=== PATIENT | male | born 1945 | race Caucasian/White ===

== ENCOUNTER 2022-07-03 13:46 | Inpatient (IN) ==
[2022-07-03 14:58] LABS: Basophils # (auto) 0.09 K/uL (0-0.2); Basophils % (auto) 1.6 %; Eosinophils # (auto) 0.09 K/uL (0-0.50); Eosinophils % (auto) 1.6 %; Hematocrit (blood only) 43.5 % (40.1-51.0); Immature Granulocytes # (auto) 0.01 K/uL (0.00-0.02); Immature Granulocytes % (auto) 0.2 %; Lymphocytes # (auto) 1.38 K/uL (1.2-3.4); Lymphocytes % (auto) 24.8 %; Mean Corpuscular Hgb Conc 34.5 g/dL (32.0-36.0); Mean Platelet Volume 9.9 fL (9.4-12.4); Monocytes # (auto) 0.66 K/uL (0.24-0.82); Monocytes % (auto) 11.9 %; Neutrophils # (auto) 3.33 K/uL (1.4-6.5); Neutrophils % (auto) 59.9 %; Platelet Count 277 K/uL (130-400); RDW Coefficient of Variation 13.9 % (11.5-14.5); RDW Standard Deviation 44.1 fL (36.4-46.3); White Blood Count 5.56 K/ul (4.8-10.8)
[2022-07-03 15:29] LABS: Alanine Aminotransferase 17 U/L (7-52); Albumin Globulin Ratio 1.6 (0.9-2); Albumin Level 4.5 gm/dl (3.4-5.0); Alkaline Phosphatase 113 U/L (34-104); Anion Gap 10 (3-11); Aspartate Aminotransferase 15 U/L (13-39); BUN Creatinine Ratio 16.3 (10-20); Bilirubin,Total 1.5 mg/dl (0.2-1.0); Blood Urea Nitrogen 13 mg/dl (6-23); Calcium 9.8 mg/dl (8.5-10.1); Carbon Dioxide 25 mmol/L (21-32); Chloride 98 mmol/L (98-107); Est GFR (African American) 99.9 ml/min; Est GFR (Non-African American) 86.2 ml/min; Globulin 2.8 gm/dl (2.5-4.0); Glucose 137 mg/dl (70-99(Fasting)); Potassium 3.9 mmol/L (3.5-5.1); Sodium 133 mmol/L (136-145); Total Protein 7.3 gm/dl (6.0-8.3)
--- NOTE | 2022-07-03 15:48 | Emergency Department Note ---
Impression & Plan Neurogenic claudication due to lumbar spinal stenosis, Compression fracture ED Provider Note NAME: LESLY TAPIA AGE: 77 SEX: M : 1945 ARRIVES VIA: Walk-In INFORMANT: Patient, ED PROVIDER(S): Sergio Smart MD Chief Complaint: Difficulty with ambulation HPI: Patient presents due to concern for difficulty with ambulation and associated back pain. Patient reports that he had a prior history of spinal stenosis and had tried some back injections but without significant improvement in symptoms. The patient states that he had a fall while getting out of the bathtub and slipped falling and striking his lower back. He states that since then he has had worsening associated pain which she has tried ibuprofen and Tylenol as well as topicals but without significant improvement in symptoms. The patient is reportedly had a recurrence of bilateral lower extremity weakness to where he subsequently cannot walk. The patient was seen at [facility] and referred here for further evaluation and treatment and possible MRI. Patient denies any bowel or bladder incontinence or retention. Patient denies any current numbness or tingling he does state it is worse when he stands up straight. Patient denies any alcohol or tobacco use no chest pain or shortness of breath cough or fever. ROS: See HPI for pertinent positives and negatives. A total of 10 systems were reviewed and otherwise negative. Past medical history: See below Surgical history: See below Social history: See below Physical Exam: GENERAL: NAD, wearing a mask, non-toxic. EYE EXAM: Normal conjunctiva. PERRL, no anisocoria and EOM's grossly intact w/o pain. NECK: Supple, no nuchal rigidity, no adenopathy, non-tender. No signs of meningismus. FROM of the neck with good chin to chest and neck extension. No stridor. LUNGS: Clear to auscultation. Normal chest wall mechanics. HEART: NSR, no MRG. ABDOMEN: Abdomen soft, non-tender, normo-active bowel sounds, no masses, no rebound or guarding. BACK: No CVA TTP. No reproducible midline or flank pain SKIN: No rashes and no bruising. UPPER EXTREMITIES: Upper extremities are grossly normal. LOWER EXTREMITIES: Grossly normal, no edema. Positive straight leg raise bilat erally. 5 out of 5 strength. No saddle anesthesia. NEURO EXAM: A&O x3, cranial nerves II-XII grossly intact, normal speech, moves all 4 extremities. No sensory deficits. 5-5 strength bilateral lower extremities. Patellar reflexes grossly normal. Differential diagnoses: Infection, dehydration, metabolic abnormality, hypo/hyperglycemia, electrolyte disturbance, anemia, hypoxia, cardiac sources, intracerebral event, toxicologic, neurologic, as well as other pathologies. Course: Patient was seen and evaluated the bedside. Full history physical exam was performed. Imaging Studies: See Below Cardiac monitoring: An order was placed for continuous cardiac monitoring. The monitor shows a rate of 77 with sinus rhythm. MDM: Patient was seen due to concern for bilateral lower extremity weakness that has been intermittent but associated back pain. Blood work was obtained and is grossly unremarkable with a normal white count H&H and platelet count. The patient's kidney function is unremarkable. Mild hyponatremia 133 and hyperbilirubinemia 1.5. The patient has no right upper quadrant pain. Patient was ordered IV pain medications and IV steroids. MRI of the lumbar spine was ordered. Patient's MRI of the lumbar spine did show fractures as well as central canal stenosis. I did speak with the on-call business analysis specialist EMILY Ellis PA-C and he is agreeable and on board for the patient to be admitted to the medicine service with possible surgery on . I did convey this to the patient and family member and they are in agreement with plan of care. I did speak the on- call hospitalist Dr. Fortune and the patient was admitted to the medicine service. Past Med/Surg History Medical History H/O: HTN (hypertension) HLD (hyperlipidemia) Surgical History H/O aortic aneurysm repair Social History Smoking Status: Former smoker Tobacco Type: Cigarettes Smoking End Date: 10 YRS AGO; Hx Alcohol Use: Yes Alcohol type: hard liquor Hx Substance Use: No Preferred Language: Congolese Communication Ability: Effective Scrap Bunch Maker Required: No Beliefs That Will Affect Care: Yarsanism Yarsanism Beliefs: ORTHODOXY Current Living Situation: Spouse Feels Safe at Home: Yes Safety Concerns: Feels Safe At This Time Assistive Devices: Walker Allergies Allergies Allergy/AdvReac Type Severity Reaction Status Date / Time No Known Allergies Allergy Verified 10/17/22 18:10 Home Meds Home Medications Medication Instructions Recorded Confirmed amlodipine 5 mg tablet 5 mg PO DAILY 07/03/22 07/03/22 aspirin 81 mg capsule,delayed 81 mg PO DAILY 07/03/22 07/03/22 release atorvastatin 80 mg tablet 80 mg PO HS 07/03/22 07/03/22 carvedilol 6.25 mg tablet 6.25 mg PO BID 07/03/22 07/03/22 furosemide 40 mg tablet 40 mg PO DAILY 07/03/22 07/03/22 losartan 100 1 tab PO DAILY 07/03/22 07/03/22 mg-hydrochlorothiazide 12.5 mg tablet magnesium oxide 400 mg PO DAILY 07/03/22 07/03/22 omeprazole 40 mg capsule,delayed 40 mg PO DAILY 07/03/22 07/03/22 release potassium chloride 10 mEq 20 meq PO DAILY 07/03/22 07/03/22 tablet,extended release sildenafil 50 mg tablet 50 mg PO DAILY PRN Sexual Activity 07/03/22 07/03/22 umeclidinium 62.5 mcg-vilanterol 1 inh inhalation DAILY 07/03/22 07/03/22 25 mcg/actuation powdr for inhalation (Anoro Ellipta) Results & Data (ED) Vital Signs Vital Signs - 24 hr 07/03/22 18:22 07/03/22 19:00 07/03/22 19:30 Pulse Rate 70 72 Pulse Rate from SpO2 Sensor 77 70 72 Respiratory Rate 18 13 17 Blood Pressure 150/79 H 143/88 H 153/79 H Blood Pressure Mean 102 106 103 Pulse Oximetry 92 89 L 92 Oxygen Delivery Method Room Air Room Air Room Air 07/03/22 20:00 07/03/22 20:30 07/03/22 21:00 Pulse Rate 77 79 85 Pulse Rate from SpO2 Sensor 78 79 Respiratory Rate 14 17 18 Blood Pressure 146/93 H 156/89 H 172/90 H Blood Pressure Mean 110 111 117 Pulse Oximetry 91 90 Oxygen Delivery Method Room Air Room Air 07/03/22 22:00 07/03/22 22:30 Pulse Rate 86 95 H Pulse Rate from SpO2 Sensor 85 95 H Respiratory Rate 19 14 Blood Pressure 122/69 144/83 H Blood Pressure Mean 86 103 Pulse Oximetry 90 92 Oxygen Delivery Method Room Air Room Air Home Medications Current Medication List: was personally reviewed by me Laboratory Data Attestation: I reviewed the patient's lab results. Result diagrams: 07/04/22 05:31 07/04/22 05:31 Lab Results 07/03/22 07/03/22 07/03/22 Range/Units 14:47 14:47 20:05 WBC 5.56 (4.8-10.8) K/ul RBC 5.00 (4.63-6.08) M/uL Hgb 15.0 (14.0-18.0) g/dl Hct 43.5 (40.1-51.0) % MCV 87.0 (80.0-100.0) fL MCH 30.0 (25.0-34.0) pg MCHC 34.5 (32.0-36.0) g/dL RDW Std Deviation 44.1 (36.4-46.3) fL RDW Coeff of Gabe 13.9 (11.5-14.5) % Plt Count 277 (130-400) K/uL MPV 9.9 (9.4-12.4) fL Immature Gran % (Auto) 0.2 % Neut % (Auto) 59.9 % Lymph % (Auto) 24.8 % [place] % (Auto) 11.9 % Eos % (Auto) 1.6 % Baso % (Auto) 1.6 % Neut # (Auto) 3.33 (1.4-6.5) K/uL Lymph # (Auto) 1.38 (1.2-3.4) K/uL [place]ks # (Auto) 0.66 (0.24-0.82) K/uL Eos # (Auto) 0.09 (0-0.50) K/uL Baso # (Auto) 0.09 (0-0.2) K/uL Immature Gran # (Auto) 0.01 (0.00-0.02) K/uL Sodium 133 L (136-145) mmol/L Potassium 3.9 (3.5-5.1) mmol/L Chloride 98 (98-107) mmol/L Carbon Dioxide 25 (21-32) mmol/L Anion Gap 10 (3-11) BUN 13 (6-23) mg/dl Creatinine 0.80 (0.6-1.4) mg/dl Est Cr Clr Drug Dosing Not Reportable Est GFR ( Amer) 99.9 ml/min Est GFR (Non-Af Amer) 86.2 ml/min BUN/Creatinine Ratio 16.3 (10-20) Glucose 137 H (70-99(Fasting)) mg/dl Calcium 9.8 (8.5-10.1) mg/dl Total Bilirubin 1.5 H (0.2-1.0) mg/dl AST 15 (13-39) U/L ALT 17 (7-52) U/L Alkaline Phosphatase 113 H (34-104) U/L Total Protein 7.3 (6.0-8.3) gm/dl Albumin 4.5 (3.4-5.0) gm/dl Globulin 2.8 (2.5-4.0) gm/dl Albumin/Globulin Ratio 1.6 (0.9-2) SARS-CoV-2, RNA, NAAT NEGATIVE (NEGATIVE) Administered Medications Amlodipine Besylate (Amlodipine Besylate 5 Mg Tab) 5 mg PO DAILY PAMELA Stop: 08/03/22 08:59 Last Admin: 07/04/22 09:12 Dose: 5 mg Documented By: AMS Carvedilol (Carvedilol 6.25 Mg Tab) 6.25 mg PO BID PAMELA Stop: 08/03/22 08:59 Last Admin: 07/04/22 09:12 Dose: 6.25 mg Documented By: EVA Furosemide (Furosemide 40 Mg Tab) 40 mg PO DAILY PAMELA Stop: 08/03/22 08:59 Last Admin: 07/04/22 09:11 Dose: 40 mg Documented By: AMS HCTZ/Losartan Potassium (Losartan/Hctz 50/12.5mg Tab) 1 tab PO DAILY PAMELA Stop: 08/03/22 08:59 Last Admin: 07/04/22 09:11 Dose: 1 tab Documented By: AMS Losartan Potassium (Losartan Potassium 50 Mg Tab) 50 mg PO DAILY PAMELA Stop: 08/03/22 08:59 Last Admin: 07/04/22 09:12 Dose: 50 mg Documented By: AMS Magnesium Oxide (Magnesium Oxide 400 Mg Tab) 400 mg PO DAILY PAMELA Stop: 08/03/22 08:59 Last Admin: 07/04/22 09:12 Dose: 400 mg Documented By: AMS Morphine Sulfate (Morphine Sulfate 4 Mg/Ml 1 Ml Carp\Vial) 3 mg IV Q4H PRN PRN Reason: Pain Stop: 07/18/22 00:11 Last Admin: 07/04/22 05:10 Dose: 3 mg Documented By: Admin: 07/04/22 00:57 Dose: 3 mg Documented By: CEE Pantoprazole Sodium (Pantoprazole 40 Mg Tab) 40 mg PO DAILY PAMELA Stop: 08/03/22 08:59 Last Admin: 07/04/22 09:12 Dose: 40 mg Documented By: EVA Potassium Chloride (Potassium Chloride Crtab 20 Meq Tabcr) 20 meq PO DAILY PAMELA Stop: 08/03/22 08:59 Last Admin: 07/04/22 09:12 Dose: 20 meq Documented By: EVA Umeclidinium/Vilanterol (Umeclidinium/Vilanterol 62.5/25mcg 7 Puffs/Inhaler) 1 puffs INH DAILY PAMELA Stop: 08/03/22 08:59 Last Admin: 07/04/22 09:11 Dose: 1 puffs Documented By: EVA Discontinued Medications Acetaminophen (Acetaminophen 500 Mg Tab) 1,000 mg PO NOW STA Stop: 07/03/22 16:24 Last Admin: 07/03/22 16:31 Dose: 1,000 mg Documented By: PATI Dextrose/Sodium Chloride (D5w And 1/2nss) 1,000 mls @ 80 mls/hr IV .[id number] PAMELA Stop: 08/03/22 00:11 Last Admin: 07/04/22 13:54 Dose: Not Given Documented By: Infusion: 07/04/22 13:54 Dose: 0 mls/hr Documented By: Infusion: 07/04/22 11:46 Dose: 0 mls/hr Documented By: Admin: 07/04/22 00:57 Dose: 80 mls/hr Documented By: CEE Methylprednisolone (Methylprednisolone 125 Mg/2 Ml Vial) 125 mg IV NOW STA Stop: 07/03/22 16:24 Last Admin: 07/03/22 16:32 Dose: 125 mg Documented By: PATI Morphine Sulfate (Morphine Sulfate 4 Mg/Ml 1 Ml Carp\Vial) 4 mg IV NOW STA Stop: 07/03/22 16:24 Last Admin: 07/03/22 16:33 Dose: 4 mg Documented By: PATI Imaging Data Radiologist's Impression: Lumbar Spine MRI 10/17/22 16:23 MRI OF THE LUMBAR SPINE WITHOUT IV CONTRAST CLINICAL HISTORY: Low back pain. Leg weakness. COMPARISON STUDY: No priors. TECHNIQUE: MRI of the lumbar spine is performed utilizing various T1 and T2- weighted sequences in the axial and sagittal planes. IV contrast was not administered for this examination. The examination is significantly compromised by motion artifact. FINDINGS: Lumbar spine: There is an acute to subacute superior endplate compression fracture of L4 with mild loss of height and associated marrow edema. There is also an inferior endplate fracture of L3. There is no loss of height of the L3 vertebral body. There is also a mild subacute appearing superior endplate compression fracture of L1. There is only mild loss of height and mild marrow edema. No retropulsed fragments are identified. Vertebral body height is otherwise maintained throughout the lumbar spine. There is minimal retrolisthesis at L2-L3 and L3-L4. There is straightening of the lumbar lordosis. Large anterior and lateral marginal osteophytes are seen throughout. The transverse and spinous processes are grossly intact. There is no evidence of spondylolysis. Intervertebral discs: Degenerative disc desiccation and loss of height is seen throughout the lumbar spine. Loss of height is severe at L2-L3 and moderate to severe at L1-L2, L3-L4, and L4-L5. Spinal cord: Visualized spinal cord is normal in morphology and signal intensity. The conus medullaris terminates at the level of L1. The nerve roots of the cauda equina are normal in morphology. T12-L1: Unremarkable. L1-L2: There is broad-based posterior disc bulge and annular fissure. This impinges on the transiting nerve roots, right greater than left. There is only mild acquired compromise of the central canal at this level with a minimum AP diameter of 7 mm. There is bilateral subarticular stenosis. There is mild bilateral neural foraminal narrowing. L2-L3: There is broad-based posterior disc bulge. This impinges on the transiting nerve roots. In conjunction with hypertrophy of the ligamentum flavum, there is moderate to severe central canal stenosis with minimum AP diameter of 5 mm. Lateral disc bulge contributes to severe bilateral subarticular stenosis. In conjunction with facet arthropathy, there is moderate to severe bilateral neural foraminal narrowing. L3-L4: There is broad-based posterior disc bulge. This impinges on the transiting nerve roots. In conjunction with hypertrophy of the ligamentum flavum, there is severe central canal stenosis at this level with a minimum AP diameter of 3 mm. There are large lateral disc bulges seen bilaterally. These impinge on the exiting bilateral L3 nerve roots. In conjunction with facet arthropathy, there is moderate to severe bilateral neural foraminal stenosis at this level. L4-L5: There is broad-based posterior disc bulge and annular fissure. This impinges on the transiting nerve roots. In conjunction with hypertrophy of ligamentum flavum, there is severe central canal stenosis at this level with a minimum AP diameter of 3 mm. A small superiorly extruded and possibly sequestered disc fragment is seen on axial image #26. The fragment is eccentric to the left and measures 10 mm. Lateral disc bulge contributes to bilateral subarticular stenosis. There is impingement of the exiting left L4 nerve root. In conjunction with facet arthropathy, there is severe bilateral neural foraminal stenosis. L5-S1: There is minimal posterior disc bulge. The central canal is clear. Lateral disc bulge contributes to mild bilateral subarticular stenosis. Facet arthropathy contributes to mild bilateral neural foraminal narrowing. Sacrum: The visualized sacrum is normal in morphology and signal intensity. Soft tissues: There is mild fatty atrophy of the paraspinous musculature. A 2.3 cm cyst is noted in the partially imaged right kidney. The bladder wall appears thickened and trabeculated indicating chronic outlet obstruction. IMPRESSION: 1. There are acute to subacute appearing fractures of L1, L3, and L4 as detailed above with corresponding marrow edema. No retropulsed fragments are identified. 2. Advanced lumbosacral spondylosis as above with multilevel acquired compromise of the central canal. See discussion for detailed level by level analysis. 3. There is a superiorly extruded and possibly sequestered disc fragment e ccentric to the left at L4-L5. 4. No destructive bony lesion is clearly seen. Dictated: 07/03/2022 6:02 PM Transcribed: 07/03/2022 6:42 PM Nikky [id number] [email or web address] Electronically signed by: Fili Escalera M.D. 07/03/2022 7:28 PM Discharge Plan Visit Data Chief Complaint: Leg Injury/Pain Stated Complaint: LOST FUNCTION IN BOTH LEGS, REF BY DR WALTON ED Provider: Sergio Smart Discharge Problem: Neurogenic claudication due to lumbar spinal stenosis, Compression fracture Patient Disposition: Admitted As Inpatient Discharge Instructions Interventions: ED Discharge Assessment Last Done: 07/03/22 23:31
[2022-07-03] MEDS ORDERED: MoRPHine SULFATE 4 MG/ML 1 ML CARP\\VIAL IV STA (16:23)
[2022-07-03] MEDS ORDERED: methylPREDNISolone 125 MG/2 ML VIAL IV STA (16:23)
[2022-07-03] MEDS ORDERED: ACETAMINOPHEN 500 MG TAB PO STA (16:23)
--- NOTE | 2022-07-03 19:30 | Magnetic Resonance Report ---
MRI OF THE LUMBAR SPINE WITHOUT IV CONTRAST CLINICAL HISTORY: Low back pain. Leg weakness. COMPARISON STUDY: No priors. TECHNIQUE: MRI of the lumbar spine is performed utilizing various T1 and T2-weighted sequences in the axial and sagittal planes. IV contrast was not administered for this examination. The examination is significantly compromised by motion artifact. FINDINGS: Lumbar spine: There is an acute to subacute superior endplate compression fracture of L4 with mild lo ss of height and associated marrow edema. There is also an inferior endplate fracture of L3. There is no loss of height of the L3 vertebral body. There is also a mild subacute appearing superior endplat e compression fracture of L1. There is only mild loss of height and mild marrow edema. No retropulsed fragments are identified. Vertebral body height is otherwise maintained throughout the lumbar spine. There is minimal retrolisthesis at L2-L3 and L3-L4. There is straightening of the lumbar lordosis. L arge anterior and lateral marginal osteophytes are seen throughout. The transverse and spinous proces ses are grossly intact. There is no evidence of spondylolysis. Intervertebral discs: Degenerative disc desiccation and loss of height is seen throughout the lumbar spine. Loss of height is severe at L2-L3 and moderate to severe at L1-L2, L3-L4, and L4-L5. Spinal cord: Visualized spinal cord is normal in morphology and signal intensity. The conus medullari s terminates at the level of L1. The nerve roots of the cauda equina are normal in morphology. T12-L1: Unremarkable. L1-L2: There is broad-based posterior disc bulge and annular fissure. This impinges on the transiting nerve roots, right greater than left. There is only mild acquired compromise of the central canal at this level with a minimum AP diameter of 7 mm. There is bilateral subarticular stenosis. There is mi ld bilateral neural foraminal narrowing. L2-L3: There is broad-based posterior disc bulge. This impinges on the transiting nerve roots. In con junction with hypertrophy of the ligamentum flavum, there is moderate to severe central canal stenosi s with minimum AP diameter of 5 mm. Lateral disc bulge contributes to severe bilateral subarticular s tenosis. In conjunction with facet arthropathy, there is moderate to severe bilateral neural foramina l narrowing. L3-L4: There is broad-based posterior disc bulge. This impinges on the transiting nerve roots. In con junction with hypertrophy of the ligamentum flavum, there is severe central canal stenosis at this le javier with a minimum AP diameter of 3 mm. There are large lateral disc bulges seen bilaterally. These i mpinge on the exiting bilateral L3 nerve roots. In conjunction with facet arthropathy, there is moder ate to severe bilateral neural foraminal stenosis at this level. L4-L5: There is broad-based posterior disc bulge and annular fissure. This impinges on the transiting nerve roots. In conjunction with hypertrophy of ligamentum flavum, there is severe central canal zeinab nosis at this level with a minimum AP diameter of 3 mm. A small superiorly extruded and possibly sequ estered disc fragment is seen on axial image #26. The fragment is eccentric to the left and measures 10 mm. Lateral disc bulge contributes to bilateral subarticular stenosis. There is impingement of the exiting left L4 nerve root. In conjunction with facet arthropathy, there is severe bilateral neural foraminal stenosis. L5-S1: There is minimal posterior disc bulge. The central canal is clear. Lateral disc bulge contribu tk to mild bilateral subarticular stenosis. Facet arthropathy contributes to mild bilateral neural f oraminal narrowing. Sacrum: The visualized sacrum is normal in morphology and signal intensity. Soft tissues: There is mild fatty atrophy of the paraspinous musculature. A 2.3 cm cyst is noted in t he partially imaged right kidney. The bladder wall appears thickened and trabeculated indicating welfare manager hailey outlet obstruction. IMPRESSION: 1. There are acute to subacute appearing fractures of L1, L3, and L4 as detailed above with correspon ding marrow edema. No retropulsed fragments are identified. 2. Advanced lumbosacral spondylosis as above with multilevel acquired compromise of the central canal . See discussion for detailed level by level analysis. 3. There is a superiorly extruded and possibly sequestered disc fragment eccentric to the left at L4- L5. 4. No destructive bony lesion is clearly seen. Dictated: 07/03/2022 6:02 PM Transcribed: 07/03/2022 6:42 PM Nik[facility] [id number] [email or web address] Electronically signed by: Fili Escalera M.D. 07/03/2022 7:28 PM
--- NOTE | 2022-07-03 23:33 | History and Physical Report ---
DATE OF ADMISSION: 07/03/2022. CHIEF COMPLAINT: Lumbar spine fracture and ambulatory dysfunction. HISTORY OF PRESENT ILLNESS: This is a 77-year-old male with past medical history significant for thoracic [place] [facility] [place] demonstrating diffuse minor irregularities without obstructive disease. In 2018, he was admitted to [facility] with chest pain, new left bundle-branch block. An updated 2D echo demonstrated mildly reduced LV function with EF of 45%-50% with inferior wall abnormality. 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 Medical management recommended. Ascending aorta by echo criteria was measured to be at 4.4 cm at that time. Follows with vascular surgery at [facility]. History of past tobacco abuse with underlying COPD, hyperlipidemia, hypertension, GERD, BPH, has chronic back pain. The patient says for the last 2 years, he on and off uses cane for back pain , but 1 month ago, he fell on the bathtub on his back and since then he is progressively getting difficulty ambulating, using a walker, that is the reason he was advised to come to the ER. A lumbar spine MRI shows acute to subacute appearing fractures of L1, L3 and L4, corresponding marrow edema, disk fragment to the left of L4-L5. The patient has ambulatory dysfunction and also has numbness in the lateral aspect of the lower leg and feet. No incontinence. He can feel his legs. Currently, resting comfortably, hemodynamically stable. He says not much of back pain, it is more of his numbness and ambulatory dysfunction. Denies any chest pain, no shortness of breath. Occasional cough. No fever, no chills. Appetite is okay. No difficulty swallowing. No headache. He has some chronic neck pain. No blurred visions, no earache, no runny nose, no sore throat, no nausea, no abdominal pain. Normal bowel movements. Since his fall and having this back pain, he is micturating frequently, but denies any incontinence. ALLERGIES: No known drug allergies. PAST MEDICAL HISTORY: As mentioned above. 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 MEDICATIONS: The patient is on amlodipine 5 mg p.o. daily, atorvastatin 80 mg p.o. at bedtime, Coreg 6.25 mg p.o. b.i.d., Lasix 40 mg p.o. daily, losartan/hydrochlorothiazide 100/12.5 mg p.o. daily, magnesium oxide 400 mg p.o. daily, omeprazole 40 mg p.o. daily, potassium chloride 20 mEq p.o. daily, Anoro Ellipta 1 inhalation daily. FAMILY HISTORY: Significant for sister had bone cancer, father had COPD, mother of natural causes. SOCIAL HISTORY: . Quit smoking in 2009, smoked 1.5 packs a day for 45 years. Alcohol, 2 drinks daily, but not every day. No drug use. REVIEW OF SYSTEMS: As per HPI. Rest of the review of systems is negative. PHYSICAL EXAMINATION: GENERAL: The patient is of moderate build, not in acute distress. VITAL SIGNS: Temperature 36.3, pulse 86, respiratory rate 19, blood pressure 122/69, oxygen 90% on room air. HEENT: Pupils equal, round and reactive to light. Oral mucosa moist. NECK: No JVD, no neck masses. CARDIOVASCULAR: S1 and S2 heard. Regular rate and rhythm. No murmur, no gallop. RESPIRATORY SYSTEM: Normal AP diameter. No accessory muscle use. No wheezing, no crackles. ABDOMEN: Soft, bowel sounds present, nontender, no distention. CENTRAL NERVOUS SYSTEM: Alert and oriented. No facial droop. Speech is clear. Insight is good. Obeys simple commands, moving his extremities. EXTREMITIES: No edema, no erythema. Sensations are intact in lower extremities, can move his lower extremities. LABORATORY DATA: WBC 5.5, hemoglobin 15, hematocrit 43.5, platelets 277. Sodium 133, potassium 3.9, chloride 98, bicarbonate 25, BUN 13, creatinine 0.8, serum glucose 137, calcium 9.8, total bilirubin 1.5, AST 15, ALT 17, alkaline phosphatase 113. SARS-CoV-2 rapid test negative. IMAGING: Lumbar spine MRI: [id number] appearing fractures of L1, L3, L4. Corresponding marrow edema. Advanced lumbosacral spondylosis, multilevel cord compromise of the central canal, superiorly excluded, and possibly sequestrated disk fragment eccentric to the left at L4-L5. ASSESSMENT AND PLAN: This 77-year-old male presents with fall and lumbar spine fracture. 1. Fall, mechanical fall and lumbar spine fracture at L1, L3 and L4. We will keep him n.p.o., IV fluids. Orthopedics consult in a.m. Pain control. If the EKG and chest x-ray are okay, the patient will be an acceptable risk to proceed with the procedure. The patient is not in acute congestive heart failure or acute chronic obstructive pulmonary disease exacerbation. Laboratories are okay. 2. History of chronic obstructive pulmonary disease. Continue his home inhalers, currently stable. 3. History of congestive heart failure. The patient has ejection fraction of 40%-45% in 2018, but recovered to 50%-55% on echocardiogram in 08/2021. On Lasix, Coreg, and losartan/hydrochlorothiazide, which will be continued. Currently getting gentle fluids as the patient is n.p.o., monitor for any volume overload. 4. History of coronary artery disease, on statin and beta alisha. 5. Gastroesophageal reflux disease, on omeprazole. 6. Hypertension, high blood pressure. The patient is on amlodipine, Coreg, losartan/hydrochlorothiazide, diuretics. We will monitor his blood pressure. 7. Hyperlipidemia, on statin. 8. History of ascending aortic aneurysm, status post repair. 9. History of benign prostatic hyperplasia, we will monitor for any urinary retention. 10. Deep venous thrombosis prophylaxis. Place him on sequential compression devices for now in plan of any procedure. If no procedure is planned soon, we can place on anticoagulation. DISPOSITION: Closely monitor in the medical floor. PT, OT prior to discharge. Social service to help with discharge planning. Level 1, full code. Job ID: [id number] MTDD
[2022-07-04] MEDS ORDERED: ACETAMINOPHEN 325 MG TAB PO PRN (00:12)
[2022-07-04] MEDS ORDERED: POLYETHYLENE (MIRALAX) 17 GM PACK PO PRN (00:12)
[2022-07-04] MEDS: D5W AND 1/2NSS 1,000 ML IV SCH ×2 (00:57→13:54)
[2022-07-04] MEDS: MoRPHine SULFATE 4 MG/ML 1 ML CARP\\VIAL IV PRN ×4 (00:57→23:13)
[2022-07-04 02:25] LABS: Appearance Urine Clear (Clear); Bilirubin Urine Negative (Negative); Blood Urine Negative (Negative); Color Urine Yellow; Glucose Urine UA 3+ (Negative); Ketones Urine Negative (Negative); Leukocyte Esterase Urine Negative (Negative); Nitrite Urine Negative (Negative); Protein Urine Negative (Negative); Specific Gravity Urine 1.017 (1.000-1.030); Urobilinogen Urine Negative (Negative); pH Urine 5.5 (4.5-7.5)
[2022-07-04 06:06] LABS: Hematocrit (blood only) 41.3 % (40.1-51.0); Hemoglobin 13.9 g/dl (14.0-18.0); Mean Corpuscular Hemoglobin 29.5 pg (25.0-34.0); Mean Corpuscular Hgb Conc 33.7 g/dL (32.0-36.0); Mean Corpuscular Volume 87.7 fL (80.0-100.0); Mean Platelet Volume 10.2 fL (9.4-12.4); Platelet Count 246 K/uL (130-400); RDW Coefficient of Variation 13.7 % (11.5-14.5); RDW Standard Deviation 43.8 fL (36.4-46.3); Red Blood Count 4.71 M/uL (4.63-6.08); White Blood Count 5.64 K/ul (4.8-10.8)
[2022-07-04 06:26] LABS: BUN Creatinine Ratio 25.4 (10-20); Calcium 9.2 mg/dl (8.5-10.1); Creatinine Clr Calc Pharmacy 115.3 ml/min; Est GFR (African American) 107.4 ml/min; Est GFR (Non-African American) 92.7 ml/min; Magnesium 1.9 mg/dl (1.7-2.4); Potassium 3.9 mmol/L (3.5-5.1)
[2022-07-04 06:36] LABS: Basophils # (auto) 0.01 K/uL (0-0.2); Basophils % (auto) 0.2 %; Immature Granulocytes # (auto) 0.03 K/uL (0.00-0.02); Immature Granulocytes % (auto) 0.5 %; Lymphocytes # (auto) 0.43 K/uL (1.2-3.4); Lymphocytes % (auto) 7.6 %; Monocytes # (auto) 0.07 K/uL (0.24-0.82); Monocytes % (auto) 1.2 %; Neutrophils % (auto) 90.5 %
--- NOTE | 2022-07-04 08:34 | XRay Report ---
XR chest 1V portable CLINICAL HISTORY: pre op TECHNIQUE: Single frontal radiograph of the chest was obtained. Comparison: None available at the time of this dictation. FINDINGS: Median sternotomy wires are unchanged. The cardiomediastinal silhouette is normal. The lungs are ashutosh r. No evidence of pleural effusion or pneumothorax. IMPRESSION: No acute chest disease. ACT 112: Negative or not required by law. Electronically signed by: Christiano Alonzo M.D. 07/04/2022 8:33 AM
[2022-07-04] MEDS: FUROSEMIDE 40 MG TAB PO SCH (09:11)
[2022-07-04] MEDS: UMECLIDINIUM/VILANTEROL 62.5/25MCG 7 PUFFS/INHALER INH SCH (09:11)
[2022-07-04] MEDS: LOSARTAN/HCTZ 50/12.5MG TAB PO SCH (09:11)
[2022-07-04] MEDS: MAGNESIUM OXIDE 400 MG TAB PO SCH (09:12)
[2022-07-04] MEDS: PANTOprazole 40 MG TAB PO SCH (09:12)
[2022-07-04] MEDS: POTASSIUM CHLORIDE CRTAB 20 MEQ TABCR PO SCH (09:12)
[2022-07-04] MEDS: amLODIPine BESYLATE 5 MG TAB PO SCH (09:12)
[2022-07-04] MEDS: LOSARTAN POTASSIUM 50 MG TAB PO SCH (09:12)
[2022-07-04] MEDS: carvediloL 6.25 MG TAB PO SCH ×2 (09:12→21:29)
--- NOTE | 2022-07-04 11:17 | Discharge Summary ---
Date of Service July 04, 2022 Principal Diagnosis Lumbar spinal stenosis with neurogenic claudication Discharge Data Allergies Allergy/AdvReac Type Severity Reaction Status Date / Time No Known Allergies Allergy Verified 07/03/22 18:10 Consultations 07/03/22 19:49 ED Decision to Admit Stat 07/04/22 08:00 Consult Orthopedic Surgery Routine Procedures Performed Operation Date: 07/05/22 13:00 <No data on this case meets the specified criteria> Ordered Studies 07/03/22 16:23 MR lumbar spine wo con Stat Hospital Course (1) Neurogenic claudication due to lumbar spinal stenosis: Patient was admitted with severe bilateral leg weakness and spinal stenosis underwent lumbar decompression fusion Targis well stable orthopedic for postoperative. He did progress status postoperative stay DAVID drain decreased appropriately. Subsequently discharged home. Discharge orders instructions from the chart for further review. Total Time Total Time Spent Total Time Spent (In Minutes): 20 minutes Discharge Plan Discharge Items Patient Disposition: Home - Self-Care Reason For Visit: LEG INJURY Discharge Diagnosis: Lumbar spinal stenosis with neurogenic claudication Activity: As commented below Non-emergency contact: Primary Care Provider Call non-emergency contact if: you have any medication questions Follow-up/Referrals: Aide Moss MD [Primary Care Provider] - Diet: Regular Addtl Attending Provider Instructions: ACTIVITY RECOMMENDATIONS: SELF CARE INSTRUCTIONS AFTER THORACIC/LUMBAR FUSIONS 1. You may walk to your tolerance. It is good exercise for your legs and back. Expect some back and intermittent leg aches and pains. 2. You may perform "counter-top" level activities (make a sandwich, monroe with a project, etc.). 3. No bending or lifting of more than 10 pounds or back twisting of any nature (roll like a log when turning in bed). 4. You may ride in a car for 20-30 minutes at a time. No driving until after your first visit with your doctor. 5. Frequent changes of position and restricting sitting to 30 minutes at a time will help limit the amount of back spasms and stiffness you may experience. 6. You may discontinue the use of ambulatory aids (cane, crutches, etc.) once your strength and confidence allow. 7. You may assistant county engineer the shower and let water strike your incision when you arrive home at least once daily. Do not take a tub bath, sit in a hot tub or go into a swimming pool until after your first recheck in the office. SPECIAL CARE INSTRUCTIONS: VERY IMPORTANT TO READ AND REVIEW A. Your surgical incision has been closed with a cosmetic suture under the skin that will dissolve in about 6 weeks. In 14 days, you can use a pair of clean scissors and cut the suture that is left outside of the skin at th e ends of your incision. 1. The small skin tapes can be removed 7 days after surgery if they have not fallen off by that point. 2. You may keep the wound open to air as much as possible to promote healing after post-op day number 5 unless told otherwise by your doctor. 3. If you think the wound looks like it is becoming infected (redness or worsening drainage) and/or you are experiencing fever, chill or worsening back pain and muscle spasms, contact the office so that we may evaluate you as soon as possible. B. Complications are uncommon, but please contact us if you have any signs or symptoms of: 1. wound infection (fever higher than 102.5 degrees F, redness, separation of wound, drainage, or increasing pain from the incision) 2. blood clots in legs (pain, swelling, redness and warmth in legs) 3. urinary tract infection (fever higher than 102.5 degrees F, burning upon urination or increased frequency of urination) 4. nerve problems (inability to walk on your toes or heels, numbness, loss of bowel or bladder control) 5. any other symptoms that concern you C. Please call the office at if you have any concerns or questions about your operation or recovery. D. No smoking! Smoking drastically decreases the chance of a solid fusion. E. Do not take any anti-inflammatory medications (Indocin, Advil, Motrin, Aspirin, Naprosyn, etc.) as these may inhibit the chance of a solid fusion. Tylenol is okay to take for pain. MANAGING PAIN AFTER SPINAL SURGERY 1. Narcotic medication is intended for short-term use and will be provided for surgical pain. Surgical pain usually lasts for a period of 4-6 weeks. Narcotic medication includes Percocet, Vicodin, Darvocet, Tylenol #3 or Lortab. 2. Longer-term pain is more appropriately treated with non-narcotic medication such as Tylenol ES. 3. Muscle spasm is not appropriately treated with narcotics. Muscle relaxers such as Soma, Flexeril or Skelaxin can be used along with Tylenol ES. 4. Remember that we all live with some "aches and pains". This is not unusual or uncommon after an injury or as we get older. a. Back pain is expected and may include muscle spasms for 4 to 6 weeks after surgery. The pain should gradually improve. If the pain worsens for no apparent reason, please contact the office. b. Intermittent leg pain may also be experienced and should not be concerned about unless it worsens for no apparent reason. If so, please contact the office. 5. We will provide appropriate medication within the normal guidelines of their prescribed use. We will also be very cautious and aware of potential abuse and extended duration of patients' medication needs. a. Pain medications are for your comfort and to assist with sleep and rest so that the tissue can heal. They are not provided in order to return to normal activity and should not be used through the day. To do so or worsening pain at night can result from ongoing tissue damage and development of tolerance to the prescribed medicine. 6. Please allow 2-3 days to process refills. Prescriptions will not be mailed but must be picked up at the office. FOLLOW UP VISIT: Keep your scheduled follow-up appointment. Any questions, please call the office at . Pending Studies at Discharge: No Stand-Alone Forms: My [facility], Smoking Cessation Medications and DC Order Prescriptions: New oxycodone 5 mg tablet 5 mg PO Q6H PRN (Reason: pain, severe) Qty: 30 0RF tramadol 50 mg tablet 50 mg PO Q6H PRN (Reason: pain, moderate) Qty: 30 0RF tamsulosin 0.4 mg Capsule 0.4 mg PO HS Qty: 30 3RF Continued furosemide 40 mg tablet 40 mg PO DAILY atorvastatin 80 mg tablet 80 mg PO HS carvedilol 6.25 mg tablet 6.25 mg PO BID sildenafil 50 mg tablet 50 mg PO DAILY PRN (Reason: Sexual Activity) potassium chloride 10 mEq tablet extended release 20 meq PO DAILY amlodipine 5 mg tablet 5 mg PO DAILY omeprazole 40 mg capsule,delayed release(DR/EC) 40 mg PO DAILY losartan-hydrochlorothiazide 100-12.5 mg tablet 1 tab PO DAILY Anoro Ellipta 62.5-25 mcg/actuation blister with device 1 inh INHALATION DAILY magnesium oxide 400 mg magnesium Tablet 400 mg PO DAILY aspirin 81 mg Capsule,Delayed Release(Dr/Ec) 81 mg PO DAILY Discharge Orders: Discharge Order (Routine); Ordered 07/10/22 Ordered By: Wade Williamson Admission Data Admit Date/Time: 07/03/22 22:49 Attending Provider: Wade Williamson Admit Provider: Wade Williamson Primary Care Provider: Aide Moss Other Providers: Robert Camacho ; Marcel Fortune ; Wade Williamson ; Kandy Goddard
--- NOTE | 2022-07-04 11:19 | Orthopedic Consultation ---
Date of Consultation July 04, 2022 Assessment & Plan (1) Neurogenic claudication due to lumbar spinal stenosis: Assessment severe multilevel lumbar spinal stenosis with compression fractures. Plan at this time the patient's had a steady decline in status has severe neural compression due to spinal stenosis at multiple levels lumbar spine. He is developing significant lower extremity weakness and inability to ambulate. Subsequently recommending urgent lumbar decompression and fusion L2-L3 L3-L4 L4-L5 with possible kyphoplasty. Risk benefits pros cons and alternatives were outlined in detail. Risk include but not limited to anesthesia blindness stroke paralysis nerve damage blood loss requiring transfusion infection requiring reoperation benefits hopefully marked improvement of his neurogenic claudication and in time his strength. At this time we will make him n.p.o. after midnight plan for surgery tomorrow. History of Present Illness Reason for Consultation: Bilateral leg pain and weakness Attending Physician: Robert Camacho MD History of Present Illness This a very pleasant 77-year-old male that had a marked decline in status of the past several weeks with progressive weakness in his lower extremities and inability to ambulate. This has been progressive over time but exacerbated recently. He states he can only stand for a few minutes and has to lean forward to obtain any relief. He notes progressive weakness particularly affecting left lower extremity. Allergies Allergy/AdvReac Type Severity Reaction Status Date / Time No Known Allergies Allergy Verified 07/03/22 18:10 Home Medications Medication Instructions Recorded Confirmed Type amlodipine 5 mg tablet 5 mg PO DAILY 07/03/22 07/03/22 History aspirin 81 mg capsule,delayed 81 mg PO DAILY 07/03/22 07/03/22 History release atorvastatin 80 mg tablet 80 mg PO HS 07/03/22 07/03/22 History carvedilol 6.25 mg tablet 6.25 mg PO BID 07/03/22 07/03/22 History furosemide 40 mg tablet 40 mg PO DAILY 07/03/22 07/03/22 History losartan 100 1 tab PO DAILY 07/03/22 07/03/22 History mg-hydrochlorothiazide 12.5 mg tablet magnesium oxide 400 mg PO DAILY 07/03/22 07/03/22 History omeprazole 40 mg capsule,delayed 40 mg PO DAILY 07/03/22 07/03/22 History release potassium chloride 10 mEq 20 meq PO DAILY 07/03/22 07/03/22 History tablet,extended release sildenafil 50 mg tablet 50 mg PO DAILY PRN Sexual Activity 07/03/22 07/03/22 History umeclidinium 62.5 mcg-vilanterol 1 inh inhalation DAILY 07/03/22 07/03/22 History 25 mcg/actuation powdr for inhalation (Anoro Ellipta) Patient History Social History Smoking Status: Former smoker Tobacco Type: Cigarettes Smoking End Date: 10 YRS AGO; Hx Alcohol Use: Yes Alcohol type: hard liquor Hx Substance Use: No Preferred Language: Italian Communication Ability: Effective [place] Electronic Required: No Beliefs That Will Affect Care: Sikhism Sikhism Beliefs: ANGLICAN Current Living Situation: Spouse Feels Safe at Home: Yes Safety Concerns: Feels Safe At This Time Assistive Devices: Walker Physical Exam Physical Exam: On exam his bed at this time. He has plus out of 5 right dorsiflexion with a 4/5 on the left. Sensory is intact to cold and light touch bilaterally. Quadriceps are symmetric and intact bilaterally. Results & Data ([facility]) Vital Signs (Past 12 Hours) Vital Signs Temp Pulse Resp BP Pulse Ox O2 Del Method 07/04/22 08:24 36.7 C 84 18 164/78 H 92 Room Air 07/04/22 08:10 Room Air 07/03/22 23:45 36.5 C 92 H 18 164/90 H 93 Room Air
--- NOTE | 2022-07-04 14:35 | Electrocardiogram Report ---
Test Reason : Blood Pressure : / mmHG Vent. Rate : 085 BPM Atrial Rate : 085 BPM P-R Int : 216 ms QRS Dur : 140 ms QT Int : 404 ms P-R-T Axes : 026 -64 051 degrees QTc Int : 480 ms Poor data quality, interpretation may be adversely affected Sinus rhythm with 1st degree A-V block Left atrial enlargement Left anterior fascicular block Left ventricular hypertrophy with QRS widening Abnormal ECG No previous ECGs available Confirmed by Presley Riley ([id number]) on 07/04/2022 2:35:35 PM Referred By: Wade Williamson Confirmed By:Presley Riley
--- NOTE | 2022-07-04 16:17 | Hospitalist Progress Note ---
Date of Service July 04, 2022 Assessment & Plan (1) Neurogenic claudication due to lumbar spinal stenosis: (2) Compression fracture: Plan Patient is a 77-year-old male with past medical history of COPD, CHF, CAD, GERD, hypertension, hyperlipidemia, history of ascending aortic aneurysm status post repair, BPH presented after a fall about a month ago. He was found to have A [id number] appearing fractures of L1, L3, L4. Corresponding marrow edema on MRI lumbar spine. Patient is scheduled for Lumbar decompression and fusion L2-L3 L3-L4 L4-L5 with possible kyphoplasty on 07/05. Mechanical Fall Lumbar spine fracture at L1, L3 and L4 Presents after a fall in the bathroom about a month ago. MRI finding as above Afebrile, normotensive and saturating well in room air. Plan for Patient is scheduled for Lumbar decompression and fusion L2-L3 L3-L4 L4-L5 with possible kyphoplasty on 07/05. N.p.o. from midnight. Chronic conditions: History of chronic obstructive pulmonary disease. Continue his home inhalers, currently stable. History of congestive heart failure. The patient has ejection fraction of 40%- 45% in 2018, but recovered to 50%-55% on echocardiogram in 08/2021. On Lasix, Coreg, and losartan/hydrochlorothiazide, which will be continued. History of coronary artery disease, on statin and beta alisha. Gastroesophageal reflux disease, on omeprazole. Hypertension, high blood pressure. The patient is on amlodipine, Coreg, losartan/hydrochlorothiazide, diuretics. We will monitor his blood pressure. Hyperlipidemia, on statin. History of ascending aortic aneurysm, status post repair. History of benign prostatic hyperplasia, we will monitor for any urinary retention. Deep venous thrombosis prophylaxis. SCDs; start pharmacological prophylaxis after procedure Admission and Anticipated Discharge Date Admission Date: July 03, 2022 Subjective Patient seen and examined at bedside. He is comfortable; not in distress. Review of Systems Review of Systems: All systems reviewed & are unremarkable except as noted in Subjective Physical Exam Physical Exam: GENERAL: The patient is of moderate build, not in acute distress. HEENT: Pupils equal, round and reactive to light. Oral mucosa moist. NECK: No JVD, no neck masses. CARDIOVASCULAR: S1 and S2 heard. Regular rate and rhythm. No murmur, no gallop. RESPIRATORY SYSTEM: Normal AP diameter. No accessory muscle use. No wheezing, no crackles. ABDOMEN: Soft, bowel sounds present, nontender, no distention. CENTRAL NERVOUS SYSTEM: Alert and oriented. No facial droop. Speech is clear. Insight is good. Obeys simple commands, moving his extremities. EXTREMITIES: No edema, no erythema. Sensations are intact in lower extremities, can move his lower extremities. Results & Data Results & Data ([facility]) Vital Signs (Past 12 Hours) Vital Signs Temp Pulse Pulse Resp BP Pulse Ox O2 Del Method 07/04/22 15:46 36.6 C 84 84 18 139/77 93 Room Air 07/04/22 08:24 36.7 C 84 18 164/78 H 92 Room Air 07/04/22 08:10 Room Air Laboratory Results Laboratory Results WBC 5.64 K/ul (4.8-10.8) 07/04/22 05:31 RBC 4.71 M/uL (4.63-6.08) 07/04/22 05:31 Hgb 13.9 g/dl (14.0-18.0) L 07/04/22 05:31 Hct 41.3 % (40.1-51.0) 07/04/22 05:31 MCV 87.7 fL (80.0-100.0) 07/04/22 05:31 MCH 29.5 pg (25.0-34.0) 07/04/22 05:31 MCHC 33.7 g/dL (32.0-36.0) 07/04/22 05:31 RDW Std Deviation 43.8 fL (36.4-46.3) 07/04/22 05:31 RDW Coeff of Gabe 13.7 % (11.5-14.5) 07/04/22 05:31 Plt Count 246 K/uL (130-400) 07/04/22 05:31 MPV 10.2 fL (9.4-12.4) 07/04/22 05:31 Immature Gran % (Auto) 0.5 % 07/04/22 05:31 Neut % (Auto) 90.5 % 07/04/22 05:31 Lymph % (Auto) 7.6 % 07/04/22 05:31 Benson % (Auto) 1.2 % 07/04/22 05:31 Eos % (Auto) 0.0 % 07/04/22 05:31 Baso % (Auto) 0.2 % 07/04/22 05:31 Neut # (Auto) 5.10 K/uL (1.4-6.5) 07/04/22 05:31 Lymph # (Auto) 0.43 K/uL (1.2-3.4) L 07/04/22 05:31 Benson # (Auto) 0.07 K/uL (0.24-0.82) L 07/04/22 05:31 Eos # (Auto) 0.00 K/uL (0-0.50) 07/04/22 05:31 Baso # (Auto) 0.01 K/uL (0-0.2) 07/04/22 05:31 Immature Gran # (Auto) 0.03 K/uL (0.00-0.02) H 07/04/22 05:31 Sodium 135 mmol/L (136-145) L 07/04/22 05:31 Potassium 3.9 mmol/L (3.5-5.1) 07/04/22 05:31 Chloride 103 mmol/L (98-107) 07/04/22 05:31 Carbon Dioxide 24 mmol/L (21-32) 07/04/22 05:31 Anion Gap 8 (3-11) 07/04/22 05:31 BUN 17 mg/dl (6-23) 07/04/22 05:31 Creatinine 0.67 mg/dl (0.6-1.4) 07/04/22 05:31 Est Cr Clr Drug Dosing 115.3 ml/min 07/04/22 05:31 Est GFR ( Amer) 107.4 ml/min 07/04/22 05:31 Est GFR (Non-Af Amer) 92.7 ml/min 07/04/22 05:31 BUN/Creatinine Ratio 25.4 (10-20) H 07/04/22 05:31 Glucose 159 mg/dl (70-99(Fasting)) H 07/04/22 05:31 Calcium 9.2 mg/dl (8.5-10.1) 07/04/22 05:31 Magnesium 1.9 mg/dl (1.7-2.4) 07/04/22 05:31 Total Bilirubin 1.5 mg/dl (0.2-1.0) H 07/03/22 14:47 AST 15 U/L (13-39) 07/03/22 14:47 ALT 17 U/L (7-52) 07/03/22 14:47 Alkaline Phosphatase 113 U/L (34-104) H 07/03/22 14:47 Total Protein 7.3 gm/dl (6.0-8.3) 07/03/22 14:47 Albumin 4.5 gm/dl (3.4-5.0) 07/03/22 14:47 Globulin 2.8 gm/dl (2.5-4.0) 07/03/22 14:47 Albumin/Globulin Ratio 1.6 (0.9-2) 07/03/22 14:47 Urine Color Yellow 07/04/22 02:10 Urine Appearance Clear (Clear) 07/04/22 02:10 Urine pH 5.5 (4.5-7.5) 07/04/22 02:10 Ur Specific [place] 1.017 (1.000-1.030) 07/04/22 02:10 Urine Protein Negative (Negative) 07/04/22 02:10 Urine Glucose (UA) 3+ (Negative) H 07/04/22 02:10 Urine Ketones Negative (Negative) 07/04/22 02:10 Urine Blood Negative (Negative) 07/04/22 02:10 Urine Nitrite Negative (Negative) 07/04/22 02:10 Urine Bilirubin Negative (Negative) 07/04/22 02:10 Urine Urobilinogen Negative (Negative) 07/04/22 02:10 Ur Leukocyte Esterase Negative (Negative) 07/04/22 02:10 SARS-CoV-2, RNA, NAAT NEGATIVE (NEGATIVE) 07/03/22 20:05 Blood Type AB Positive 07/04/22 05:31 Antibody Screen NEGATIVE 07/04/22 05:31 Crossmatch See Detail 07/04/22 05:31 Impressions Lumbar Spine MRI 07/03/22 16:23 MRI OF THE LUMBAR SPINE WITHOUT IV CONTRAST CLINICAL HISTORY: Low back pain. Leg weakness. COMPARISON STUDY: No priors. TECHNIQUE: MRI of the lumbar spine is performed utilizing various T1 and T2- weighted sequences in the axial and sagittal planes. IV contrast was not administered for this examination. The examination is significantly compromised by motion artifact. FINDINGS: Lumbar spine: There is an acute to subacute superior endplate compression fracture of L4 with mild loss of height and associated marrow edema. There is also an inferior endplate fracture of L3. There is no loss of height of the L3 vertebral body. There is also a mild subacute appearing superior endplate compression fracture of L1. There is only mild loss of height and mild marrow edema. No retropulsed fragments are identified. Vertebral body height is otherwise maintained throughout the lumbar spine. There is minimal retrolisthesis at L2-L3 and L3-L4. There is straightening of the lumbar lordosi s. Large anterior and lateral marginal osteophytes are seen throughout. The transverse and spinous processes are grossly intact. There is no evidence of spondylolysis. Intervertebral discs: Degenerative disc desiccation and loss of height is seen throughout the lumbar spine. Loss of height is severe at L2-L3 and moderate to severe at L1-L2, L3-L4, and L4-L5. Spinal cord: Visualized spinal cord is normal in morphology and signal intensity. The conus medullaris terminates at the level of L1. The nerve roots of the cauda equina are normal in morphology. T12-L1: Unremarkable. L1-L2: There is broad-based posterior disc bulge and annular fissure. This impinges on the transiting nerve roots, right greater than left. There is only mild acquired compromise of the central canal at this level with a minimum AP diameter of 7 mm. There is bilateral subarticular stenosis. There is mild bilateral neural foraminal narrowing. L2-L3: There is broad-based posterior disc bulge. This impinges on the transiting nerve roots. In conjunction with hypertrophy of the ligamentum flavum, there is moderate to severe central canal stenosis with minimum AP diameter of 5 mm. Lateral disc bulge contributes to severe bilateral subarticular stenosis. In conjunction with facet arthropathy, there is moderate to severe bilateral neural foraminal narrowing. L3-L4: There is broad-based posterior disc bulge. This impinges on the transiting nerve roots. In conjunction with hypertrophy of the ligamentum flavum, there is severe central canal stenosis at this level with a minimum AP diameter of 3 mm. There are large lateral disc bulges seen bilaterally. These impinge on the exiting bilateral L3 nerve roots. In conjunction with facet arthropathy, there is moderate to severe bilateral neural foraminal stenosis at this level. L4-L5: There is broad-based posterior disc bulge and annular fissure. This impinges on the transiting nerve roots. In conjunction with hypertrophy of ligamentum flavum, there is severe central canal stenosis at this level with a minimum AP diameter of 3 mm. A small superiorly extruded and possibly sequestered disc fragment is seen on axial image #26. The fragment is eccentric to the left and measures 10 mm. Lateral disc bulge contributes to bilateral subarticular stenosis. There is impingement of the exiting left L4 nerve root. In conjunction with facet arthropathy, there is severe bilateral neural foraminal stenosis. L5-S1: There is minimal posterior disc bulge. The central canal is clear. Lateral disc bulge contributes to mild bilateral subarticular stenosis. Facet arthropathy contributes to mild bilateral neural foraminal narrowing. Sacrum: The visualized sacrum is normal in morphology and signal intensity. Soft tissues: There is mild fatty atrophy of the paraspinous musculature. A 2.3 cm cyst is noted in the partially imaged right kidney. The bladder wall appears thickened and trabeculated indicating chronic outlet obstruction. IMPRESSION: 1. There are acute to subacute appearing fractures of L1, L3, and L4 as detailed above with corresponding marrow edema. No retropulsed fragments are identified. 2. Advanced lumbosacral spondylosis as above with multilevel acquired compromise of the central canal. See discussion for detailed level by level analysis. 3. There is a superiorly extruded and possibly sequestered disc fragment eccentric to the left at L4-L5. 4. No destructive bony lesion is clearly seen. Dictated: 07/03/2022 6:02 PM Transcribed: 07/03/2022 6:42 PM Nikky [id number] [email or web address] Electronically signed by: Fili Escalera M.D. 07/03/2022 7:28 PM Chest X-Ray 07/04/22 00:12 XR chest 1V portable CLINICAL HISTORY: pre op TECHNIQUE: Single frontal radiograph of the chest was obtained. Comparison: None available at the time of this dictation. FINDINGS: Median sternotomy wires are unchanged. The cardiomediastinal silhouette is normal. The lungs are clear. No evidence of pleural effusion or pneumothorax. IMPRESSION: No acute chest disease. ACT 112: Negative or not required by law. Electronically signed by: Christiano Alonzo M.D. 07/04/2022 8:33 AM
[2022-07-04] MEDS: ATORVASTATIN 40 MG TAB PO SCH (21:29)
[2022-07-05 06:26] LABS: Basophils # (auto) 0.08 K/uL (0-0.2); Basophils % (auto) 1.1 %; Eosinophils # (auto) 0.05 K/uL (0-0.50); Eosinophils % (auto) 0.7 %; Hematocrit (blood only) 42.8 % (40.1-51.0); Hemoglobin 14.2 g/dl (14.0-18.0); Immature Granulocytes # (auto) 0.02 K/uL (0.00-0.02); Immature Granulocytes % (auto) 0.3 %; Lymphocytes # (auto) 2.02 K/uL (1.2-3.4); Lymphocytes % (auto) 27.5 %; Mean Corpuscular Hemoglobin 29.8 pg (25.0-34.0); Mean Corpuscular Hgb Conc 33.2 g/dL (32.0-36.0); Mean Corpuscular Volume 89.7 fL (80.0-100.0); Mean Platelet Volume 10.3 fL (9.4-12.4); Monocytes # (auto) 0.85 K/uL (0.24-0.82); Monocytes % (auto) 11.6 %; Neutrophils # (auto) 4.32 K/uL (1.4-6.5); Neutrophils % (auto) 58.8 %; Platelet Count 254 K/uL (130-400); RDW Coefficient of Variation 14.2 % (11.5-14.5); RDW Standard Deviation 46.7 fL (36.4-46.3); Red Blood Count 4.77 M/uL (4.63-6.08); White Blood Count 7.34 K/ul (4.8-10.8)
[2022-07-05 06:57] LABS: BUN Creatinine Ratio 23.8 (10-20); Calcium 9.3 mg/dl (8.5-10.1); Creatinine Clr Calc Pharmacy 96.6 ml/min; Est GFR (African American) 99.9 ml/min; Est GFR (Non-African American) 86.2 ml/min; Potassium 4.1 mmol/L (3.5-5.1)
[2022-07-05] MEDS: carvediloL 6.25 MG TAB PO SCH ×2 (09:47→20:31)
[2022-07-05] MEDS: LOSARTAN POTASSIUM 50 MG TAB PO SCH (09:50)
[2022-07-05] MEDS: MAGNESIUM OXIDE 400 MG TAB PO SCH (09:50)
[2022-07-05] MEDS: FUROSEMIDE 40 MG TAB PO SCH (09:50)
[2022-07-05] MEDS: UMECLIDINIUM/VILANTEROL 62.5/25MCG 7 PUFFS/INHALER INH SCH (09:50)
[2022-07-05] MEDS: PANTOprazole 40 MG TAB PO SCH (09:50)
[2022-07-05] MEDS: amLODIPine BESYLATE 5 MG TAB PO SCH (09:50)
[2022-07-05] MEDS: LOSARTAN/HCTZ 50/12.5MG TAB PO SCH (09:50)
[2022-07-05] MEDS: POTASSIUM CHLORIDE CRTAB 20 MEQ TABCR PO SCH (09:50)
[2022-07-05] MEDS ORDERED: PROPOFOL IV EMULSION 10 MG/ML 20 ML VIAL IV ONE (11:21)
[2022-07-05] MEDS ORDERED: DEXAMETHASONE SOD INJ 4 MG/ML VIAL ONE ×2 (11:21→13:59)
[2022-07-05] MEDS ORDERED: GLYCOPYRROLATE 0.2 MG/ML VIAL ONE (11:21)
[2022-07-05] MEDS ORDERED: MIDAZOLAM HCL 1 MG/ML 2ML VIAL ONE (11:21)
[2022-07-05] MEDS ORDERED: NEOSTIGMINE METHYLSULFATE 1 MG/ML 10ML VIAL ONE (11:21)
[2022-07-05] MEDS ORDERED: ONDANSETRON INJ 2 MG/ML 2 ML VIAL ONE (11:21)
[2022-07-05] MEDS ORDERED: fentaNYL citrate 100 MCG/2 ML VIAL ONE (11:21)
[2022-07-05] MEDS ORDERED: HYDROmorphone INJ 2 MG/ML SYR/VIAL ONE (11:22)
--- NOTE | 2022-07-05 12:29 | Hospitalist Progress Note ---
Date of Service July 05, 2022 Assessment & Plan (1) Neurogenic claudication due to lumbar spinal stenosis: (2) Compression fracture: Plan Patient is a 77-year-old male with past medical history of COPD, CHF, CAD, GERD, hypertension, hyperlipidemia, history of ascending aortic aneurysm status post repair, BPH presented after a fall about a month ago. He was found to have A [id number] appearing fractures of L1, L3, L4. Corresponding marrow edema on MRI lumbar spine. Patient is scheduled for Lumbar decompression and fusion L2-L3 L3-L4 L4-L5 with possible kyphoplasty on 07/05. Mechanical Fall Lumbar spine fracture at L1, L3 and L4 Presents after a fall in the bathroom about a month ago. MRI finding showed acute to subacute appearing fractures of L1, L3, and L4 as detailed above with corresponding marrow edema. superiorly extruded and possibly sequestered disc fragment eccentric to the left at L4-L5. pain control Scheduled for Lumbar decompression and fusion L2-L3 L3-L4 L4-L5 with possible kyphoplasty today Monitor h/h post surgical Chronic conditions: History of chronic obstructive pulmonary disease. Continue his home inhalers, currently stable. History of congestive heart failure. The patient has ejection fraction of 40%- 45% in 2018, but recovered to 50%-55% on echocardiogram in 08/2021. On Lasix, Coreg, and losartan/hydrochlorothiazide, which will be continued. History of coronary artery disease, on statin and beta alisha. Gastroesophageal reflux disease, on omeprazole. Hypertension, high blood pressure. The patient is on amlodipine, Coreg, lo sartan/hydrochlorothiazide, diuretics. We will monitor his blood pressure. Hyperlipidemia, on statin. History of ascending aortic aneurysm, status post repair. History of benign prostatic hyperplasia, we will monitor for any urinary retention. Deep venous thrombosis prophylaxis. SCDs; start pharmacological prophylaxis after procedure Admission and Anticipated Discharge Date Admission Date: July 03, 2022 Subjective Pt was seen and examined for follow up back pain Lying in bed with no acute distress with at bedside Pt said that he feels ok He is waiting to go for surgery with ortho Dr. Williamson He denies any chest pain, palpitation, dizziness and SOB Review of Systems Review of Systems: All systems reviewed & are unremarkable except as noted in Subjective Physical Exam Physical Exam: General- No acute distress Head- atraumatic Eyes- PERRL, EOMI, ENT- oropharynx clear Neck- supple, no JVD Lungs- clear to auscultation Heart- regular rhythm; no murmur Abdomen- normal bowel sounds, soft, nontender Extremities- no calf tenderness Neuro- alert, oriented x 3; PERRL, EOMI; no facial palsy; no dysarthria Skin- warm & dry Results & Data Results & Data ([facility]) Vital Signs (Past 12 Hours) Vital Signs Temp Pulse Resp BP Pulse Ox O2 Del Method 07/05/22 07:50 36.5 C 67 16 147/84 H 92 Room Air
--- NOTE | 2022-07-05 12:44 | Anesthesiology Consultation ---
Date of Service July 05, 2022 Assessment & Plan (1) Encounter for pre-operative examination: Chart Review Chart Review: Acceptable Risk for Surgery and Patient NOT seen in Pre Admission Testing Consults Requested none History Surgery Operation Date: 07/05/22 13:00 Proposed Procedures p L2-L5 Decompression and Fusion - Wade Williamson DO Height/Weight Height: 6 ft Weight: 104.326 kg Allergies Allergy/AdvReac Type Severity Reaction Status Date / Time No Known Allergies Allergy Verified 07/03/22 18:10 Medications Home Medications Medication Instructions Recorded Confirmed Last Taken amlodipine 5 mg tablet 5 mg PO DAILY 07/03/22 07/03/22 07/03/22 aspirin 81 mg capsule,delayed 81 mg PO DAILY 07/03/22 07/03/22 Unknown release atorvastatin 80 mg tablet 80 mg PO HS 07/03/22 07/03/22 07/02/22 carvedilol 6.25 mg tablet 6.25 mg PO BID 07/03/22 07/03/22 07/03/22 08:00 furosemide 40 mg tablet 40 mg PO DAILY 07/03/22 07/03/22 07/03/22 losartan 100 1 tab PO DAILY 07/03/22 07/03/22 07/03/22 mg-hydrochlorothiazide 12.5 mg tablet magnesium oxide 400 mg PO DAILY 07/03/22 07/03/22 07/03/22 omeprazole 40 mg capsule,delayed 40 mg PO DAILY 07/03/22 07/03/22 07/03/22 release potassium chloride 10 mEq 20 meq PO DAILY 07/03/22 07/03/22 07/03/22 tablet,extended release sildenafil 50 mg tablet 50 mg PO DAILY PRN Sexual Activity 07/03/22 07/03/22 Unknown umeclidinium 62.5 mcg-vilanterol 1 inh inhalation DAILY 07/03/22 07/03/22 07/03/22 25 mcg/actuation powdr for inhalation (Anoro Ellipta) Active Medications Generic Name Dose Route Start Last Admin Trade Name Freq PRN Reason Stop Dose Admin Amlodipine Besylate 5 mg 07/04/22 09:00 07/05/22 09:50 Amlodipine Besylate 5 Mg Tab PO 08/03/22 08:59 Not Given DAILY PAMELA Atorvastatin Calcium 80 mg 07/04/22 21:00 07/04/22 21:29 Atorvastatin 40 Mg Tab PO 08/03/22 20:59 80 mg HS PAMELA Administration Carvedilol 6.25 mg 07/04/22 09:00 07/05/22 09:47 Carvedilol 6.25 Mg Tab PO 08/03/22 08:59 6.25 mg BID PAMELA Administration Furosemide 40 mg 07/04/22 09:00 07/05/22 09:50 Furosemide 40 Mg Tab PO 08/03/22 08:59 Not Given DAILY PAMELA HCTZ/Losartan Potassium 1 tab 07/04/22 09:00 07/05/22 09:50 Losartan/Hctz 50/12.5mg Tab PO 08/03/22 08:59 Not Given DAILY PAMELA Losartan Potassium 50 mg 07/04/22 09:00 07/05/22 09:50 Losartan Potassium 50 Mg Tab PO 08/03/22 08:59 Not Given DAILY PAMELA Magnesium Oxide 400 mg 07/04/22 09:00 07/05/22 09:50 Magnesium Oxide 400 Mg Tab PO 08/03/22 08:59 Not Given DAILY PAMELA Morphine Sulfate 3 mg 07/04/22 00:12 07/04/22 23:13 Morphine Sulfate 4 Mg/Ml 1 Ml Carp\Vial IV 07/18/22 00:11 3 mg Q4H PRN Administration Pain Pantoprazole Sodium 40 mg 07/04/22 09:00 07/05/22 09:50 Pantoprazole 40 Mg Tab PO 08/03/22 08:59 Not Given DAILY PAMELA Potassium Chloride 20 meq 07/04/22 09:00 07/05/22 09:50 Potassium Chloride Crtab 20 Meq Tabcr PO 08/03/22 08:59 Not Given DAILY PAMELA Umeclidinium/Vilanterol 1 puffs 07/04/22 09:00 07/05/22 09:50 Umeclidinium/Vilanterol 62.5/25mcg 7 Puffs/Inhaler INH 08/03/22 08:59 1 puffs DAILY PAMELA Administration NPO Date Last Intake of Fluids: 07/04/22 Time Last Intake of Fluids: 22:00 Last Intake of Fluids Comment: sip of water 0947 w/med Date Last Intake of Solids: 07/04/22 Time Last Intake of Solids: 22:00 Past Medical History Medical History H/O: HTN (hypertension) HLD (hyperlipidemia) Past Surgical History Surgical History H/O aortic aneurysm repair Social History Smoking Status: Former smoker Smoking End Date: 10 YRS AGO Hx Alcohol Use: Yes Alcohol type: hard liquor alcohol intake frequency: a few times a week Hx Substance Use: No Physical Exam Vital Signs Last Vital Signs Temp 98.1 F 07/05/22 12:32 Pulse 63 07/05/22 12:32 Resp 18 07/05/22 12:32 BP 151/88 H 07/05/22 12:32 Pulse Ox 93 07/05/22 12:32 O2 Del Method 07/05/22 12:32 Testing Laboratory Results 07/05/22 05:50 07/05/22 05:50 Urine Color Yellow 07/04/22 02:10 Urine Appearance Clear (Clear) 07/04/22 02:10 Urine pH 5.5 (4.5-7.5) 07/04/22 02:10 Ur Specific [place] 1.017 (1.000-1.030) 07/04/22 02:10 Urine Protein Negative (Negative) 07/04/22 02:10 Urine Glucose (UA) 3+ (Negative) H 07/04/22 02:10 Urine Ketones Negative (Negative) 07/04/22 02:10 Urine Nitrite Negative (Negative) 07/04/22 02:10 Ur Leukocyte Esterase Negative (Negative) 07/04/22 02:10 Blood Type AB Positive 07/04/22 05:31 Antibody Screen NEGATIVE 07/04/22 05:31
[2022-07-05] MEDS ORDERED: LABETALOL HCL IV 5 MG/ML 20ML IV PRN (12:46)
[2022-07-05] MEDS ORDERED: ATROPINE SULFATE 0.1 MG/ML 10ML SYR IV PRN (12:46)
[2022-07-05] MEDS ORDERED: ONDANSETRON INJ 2 MG/ML 2 ML VIAL IV PRN ×2 (12:46→19:22)
[2022-07-05] MEDS ORDERED: ePHEDrine sulfate 50 MG/ML AMP IV PRN (12:46)
--- NOTE | 2022-07-05 12:56 | History & Physical Bridge Note ---
Date of Service July 05, 2022 History & Physical Bridge Note I have examined the patient, reviewed the History & Physical and in the interval since the performance of the History & Physical I have noted the following changes of clinical significance: no changes noted Lumbar decompression and fusion L2-L5 for possible kyphoplasty
[2022-07-05] MEDS ORDERED: ceFAZolin 2,000 MG/15 ML IV PUSH IV ONE (13:05)
[2022-07-05] MEDS ORDERED: ceFAZolin 330 MG/ML 1 GM VIAL ONE (13:06)
[2022-07-05] MEDS ORDERED: BUPIVACAINE/EPINEPHRINE 0.25% 1:200,000 30 ML VIAL ONE (13:06)
[2022-07-05] MEDS ORDERED: ceFAZolin 2000MG 2,000 MG/15 ML SYR IV ONE (13:09)
[2022-07-05] MEDS ORDERED: ROCURONIUM BROMIDE 10 MG/ML 5 ML VIAL IV ONE (13:56)
[2022-07-05] MEDS ORDERED: FLOSEAL HEMOSTATIC MATRIX 10ML TOP ONE (14:14)
[2022-07-05] MEDS ORDERED: ePHEDrine sulfate 50 MG/ML SYR ONE (14:27)
[2022-07-05] MEDS ORDERED: PHENYLEPHRINE 100MCG/ML 5ML SYR ONE (14:27)
--- NOTE | 2022-07-05 16:10 | Operative Report ---
Post Operative Report Pre & Post Diagnosis Operation Date: 07/05/22 13:00 Pre-Op Diagnosis: Neurogenic claudication due to lumbar spinal stenosis. Post-Op Diagnosis: Neurogenic claudication due to lumbar spinal stenosis. I identified the patient and participated in the time-out.: Yes Procedure Operation Date: 07/05/22 13:00 Actual Procedures #1 lumbar decompression with bilateral medial facetectomies and foraminotomies L1-L2, L2-3, L3-L4 and L4-L5. #2 posterior spinal fusion L2-L5. #3 placement posterior segmental instrumentation L2-L5. #4 interbody fusion L3-L4 L4-L5. #5 placement of Spira 11 by 26 mm cage at L3-L4 and 12 x 26 mm cage at L4-L5. #6 placement of locally harvested morselized autograft in the posterior gutters. #7 patient of I factor in the interbody space and infuse collagen sponge, master graft in the posterior lateral gutters. Surgeon Wade Williamson, DO Electrostatic Paint Operator Kaitlynn Melgar Estimated Blood Loss 350 Findings See Below The patient is 6 feet tall weighing over 104 kg with a BMI in excess of 31. Patient's body habitus did contribute to significant technical difficulty requiring her deeper retractors longer instruments in order to perform his procedure. This had at least 50% increased to the operative time. Specimens None Indications This is a 77-year-old male who presents above-mentioned diagnosis after failing course of nonoperative care is here for the above-mentioned procedure. Description of Procedure Patient was met with identified informed consent obtained. Patient was then taken to the operative suite underwent an patient placed in a prone position the [place] table top Nahid frame. All bony prominences well-padded eyes inspected to ensure no external pressure placed upon them. This point the lumbar spine was prepped and draped in normal sterile fashion. Sharp dissection with the assistance of Bovie cautery was performed down to and exposing the lamina and transverse processes of L2 L3-L4-L5 bilaterally. From caudal to cephalad fashion complete laminectomy of L4 L3 L2 and partial laminectomy of L1 was performed including bilateral medial facetectomies and foraminotomies addressing severe spinal stenosis. Pedicle screws were then placed in L2 L3-L4-L5 bilaterally with assistance of fluoroscopy and appropriately sized hardeep contoured and placed. By way of entrance foraminal approach and left complete discectomy of L4-L5 was performed endplates curetted to subcortical bleeding bone and a 13 x 26 mm spiral cage with I factor tapped in position. Then proceeded to L4 [address] again by [address] of a transfemoral approach and left pleat discectomy performed endplates curetted to subcortically bone and 11 x 26 mm spiral cage with I factor tapped in position. The rods then locked in final position bilaterally. The transverse processes of L2-L3 L4-5 were then burred to subcortical bleeding bone. Infuse collagen sponge, master from locally harvested morselized autograft was then placed in the posterior gutters. 15 round DAVID drain inserted. The incision was then closed with 1 Vicryl the fascia 2-0 Vicryl subcutaneously and 4 Monocryl for final skin closure. Steri-Strip sterile dressings placed. Patient waken taken PACU stable condition. Please note spinal cord monitoring visualized at the procedure no changes noted. Lastly Kaitlynn Melgar was present out the entire procedure and all the patient positioning complex portions of the surgery and final skin closure. I attest to the content of the Intraoperative Record and any orders documented therein. Any exceptions are noted below.
[2022-07-05] MEDS: fentaNYL citrate 100 MCG/2 ML VIAL IV PRN ×3 (16:39→18:20)
[2022-07-05] MEDS ORDERED: PROMETHAZINE HCL 6.25 MG in SODIUM CHLORIDE 0.9% 50 ML IV STA (16:52)
[2022-07-05] MEDS ORDERED: PROMETHAZINE HCL INJ 25 MG/ML 1 ML VIAL ONE (16:52)
--- NOTE | 2022-07-05 17:10 | Fluoroscopy Report ---
FL lumbar spine 2-3V CLINICAL HISTORY: L2-L5 decompression and fusion COMPARISON STUDY: Lumbar spine MRI 07/03/2022. FLUOROSCOPY TIME: 27 seconds. FINDINGS: 2 fluoroscopic spot images of the lumbar spine demonstrate posterior decompression and fusi on from L2 through L5 with pedicle screws and rods. The L3-L4 and L4-5 disc spacers are placed. The h ardware appears intact. IMPRESSION: Fluoroscopic assistance provided for L2-L5 posterior decompression and fusion. ACT 112: Negative or not required by law. Electronically signed by: Dell Hickey M.D. 07/05/2022 5:09 PM
[2022-07-05 17:49] LABS: Hematocrit (blood only) 40.5 % (40.1-51.0); Hemoglobin 13.4 g/dl (14.0-18.0)
--- NOTE | 2022-07-05 18:34 | Anesthesiology Progress Note ---
Date of Service July 05, 2022 Anesthesia Post Procedure Vital Signs Vital Signs: Temp Pulse Pulse Resp BP Pulse Ox O2 Del Method 07/05/22 18:25 85 14 127/79 96 Nasal Cannula 07/05/22 18:15 87 16 112/79 92 Nasal Cannula 07/05/22 18:05 62 18 118/77 94 Nasal Cannula 07/05/22 17:55 36.3 C L 62 18 118/77 94 Nasal Cannula 07/05/22 17:45 60 13 128/74 95 Nasal Cannula 07/05/22 17:35 65 22 126/69 95 Nasal Cannula 07/05/22 17:25 55 L 13 129/76 96 Nasal Cannula 07/05/22 17:15 65 17 141/77 H 96 Nasal Cannula 07/05/22 17:05 36.1 C L 55 L 12 122/74 94 Nasal Cannula 07/05/22 16:55 67 20 128/70 96 Nasal Cannula 07/05/22 16:35 69 14 122/71 99 Oxymask 07/05/22 16:45 68 13 133/81 99 Oxymask 07/05/22 16:25 36.6 C 77 12 123/76 96 Oxymask 07/05/22 12:32 36.7 C 63 18 151/88 H 93 Room Air 07/05/22 09:51 Room Air 07/05/22 07:50 36.5 C 67 16 147/84 H 92 Room Air 07/04/22 21:02 36.7 C 70 18 144/69 H 93 Room Air O2 Flow Rate 07/05/22 18:25 4 07/05/22 18:15 4 07/05/22 18:05 4 07/05/22 17:55 4 07/05/22 17:45 4 07/05/22 17:35 4 07/05/22 17:25 4 07/05/22 17:15 4 07/05/22 17:05 4 07/05/22 16:55 4 07/05/22 16:35 11 07/05/22 16:45 11 07/05/22 16:25 11 07/05/22 12:32 07/05/22 09:51 07/05/22 07:50 07/04/22 21:02 Pain Intensity Bilateral Leg: Pain Intensity: 4 Back: Pain Intensity: 7 Transfer of Care Handoff Completed per policy Notes Mental Status: alert / awake / arousable Patient Amnestic to Procedure: Yes Nausea / Vomiting: adequately controlled Pain: adequately controlled Airway Patency, RR, SpO2: stable & adequate BP & HR: stable & adequate Hydration State: stable & adequate Anesthetic Complications: no major complications apparent Notes: Patient developed T wave inversions in PCU.Pt is H/D stable. Pt is w/o c/o C/P or difficulty breathing.Troponins are NL. I spoke w/ Dr Kandy Goddard(attend ing hospitalist) regarding this. He will see patient and follow up with him.
[2022-07-05] MEDS ORDERED: diphenhydrAMINE Capsule 25 MG CAP PO PRN (19:22)
[2022-07-05] MEDS ORDERED: SOD PHOSPHATE/SOD BIPHOSPHATE ENEMA 132 ML BTL PR PRN (19:22)
[2022-07-05] MEDS ORDERED: bisacodyL 10 MG SUPP PR PRN (19:22)
[2022-07-05] MEDS ORDERED: LORazepam 0.5 MG TAB PO PRN (19:22)
[2022-07-05] MEDS ORDERED: ONDANSETRON 4 MG OD TAB PO PRN (19:22)
[2022-07-05] MEDS ORDERED: MAGNESIUM HYDROXIDE SUSP 30 ML UDC PO PRN (19:22)
[2022-07-05] MEDS ORDERED: ACETAMINOPHEN 1,000 MG/100 ML VIAL IV PRN (19:22)
[2022-07-05] MEDS ORDERED: traMADol HCL 50 MG TABLET PO PRN (19:22)
[2022-07-05] MEDS ORDERED: PROMETHAZINE HCL 12.5 MG in SODIUM CHLORIDE 0.9% 50 ML IV PRN (19:22)
[2022-07-05] MEDS ORDERED: FAMOTIDINE 20 MG TAB PO PRN (19:22)
[2022-07-05] MEDS ORDERED: LORazepam 0.5 MG in SYRINGE 0 ML IV PRN (19:22)
[2022-07-05] MEDS ORDERED: METOCLOPRAMIDE HCL INJ 5 MG/ML 2 ML VIAL IV PRN (19:22)
[2022-07-05] MEDS ORDERED: HYDROmorphone INJ 0.5 MG/0.5 ML SYR IV PRN (19:22)
[2022-07-05] MEDS ORDERED: NALOXONE HCL 0.4 MG/1 ML VIAL/CARP IV PRN (19:22)
[2022-07-05] MEDS ORDERED: ALUMINUM/MAGNESIUM SUSP 30 ML UDC PO PRN (19:22)
[2022-07-05] MEDS ORDERED: DO NOT ADMINISTER FLU VACCINE PRN (19:22)
[2022-07-05] MEDS ORDERED: DO NOT ADMINISTER PNEUMOCOCCAL VACCINE PRN (19:22)
[2022-07-05] MEDS ORDERED: hydrOXYzine HCl 25 MG TAB PO PRN (19:22)
[2022-07-05] MEDS: LACTATED RINGER'S 1,000 ML IV SCH (20:27)
[2022-07-05] MEDS: ATORVASTATIN 40 MG TAB PO SCH (20:31)
[2022-07-05] MEDS: DOCUSATE SODIUM/SENNA 50/8.6MG TAB PO SCH (20:32)
[2022-07-05] MEDS: HYDROmorphone INJ 1 MG/ML SYRINGE IV PRN (23:34)
[2022-07-05] MEDS: ceFAZolin 2000MG 2,000 MG/15 ML SYR IV SCH (23:36)
[2022-07-06] MEDS: oxyCODONE HCL IR 5 MG TAB (IMMEDIATE RELEASE) PO PRN ×4 (00:11→20:31)
[2022-07-06] MEDS: LACTATED RINGER'S 1,000 ML IV SCH (01:57)
[2022-07-06] MEDS: ceFAZolin 2000MG 2,000 MG/15 ML SYR IV SCH (05:21)
[2022-07-06] MEDS: POLYETHYLENE (MIRALAX) 17 GM PACK PO SCH ×3 (05:22→18:19)
[2022-07-06 06:43] LABS: Basophils # (auto) 0.02 K/uL (0-0.2); Basophils % (auto) 0.2 %; Hematocrit (blood only) 35.6 % (40.1-51.0); Hemoglobin 11.8 g/dl (14.0-18.0); Immature Granulocytes # (auto) 0.05 K/uL (0.00-0.02); Immature Granulocytes % (auto) 0.5 %; Lymphocytes # (auto) 0.99 K/uL (1.2-3.4); Lymphocytes % (auto) 9.5 %; Mean Corpuscular Hemoglobin 29.8 pg (25.0-34.0); Mean Corpuscular Hgb Conc 33.1 g/dL (32.0-36.0); Mean Corpuscular Volume 89.9 fL (80.0-100.0); Mean Platelet Volume 9.9 fL (9.4-12.4); Monocytes % (auto) 13.5 %; Neutrophils # (auto) 7.94 K/uL (1.4-6.5); Neutrophils % (auto) 76.3 %; Platelet Count 226 K/uL (130-400); RDW Coefficient of Variation 13.9 % (11.5-14.5); RDW Standard Deviation 46.1 fL (36.4-46.3); Red Blood Count 3.96 M/uL (4.63-6.08)
[2022-07-06 07:12] LABS: Calcium 8.7 mg/dl (8.5-10.1); Est GFR (African American) 102.6 ml/min; Est GFR (Non-African American) 88.5 ml/min; Potassium 4.2 mmol/L (3.5-5.1)
[2022-07-06] MEDS: UMECLIDINIUM/VILANTEROL 62.5/25MCG 7 PUFFS/INHALER INH SCH (08:07)
[2022-07-06] MEDS: FUROSEMIDE 40 MG TAB PO SCH (08:08)
[2022-07-06] MEDS: carvediloL 6.25 MG TAB PO SCH ×2 (08:08→20:26)
[2022-07-06] MEDS: ASPIRIN 81 MG ECTAB PO SCH (08:08)
[2022-07-06] MEDS: amLODIPine BESYLATE 5 MG TAB PO SCH (08:08)
[2022-07-06] MEDS: MAGNESIUM OXIDE 400 MG TAB PO SCH (08:08)
[2022-07-06] MEDS: PANTOprazole 40 MG TAB PO SCH (08:08)
[2022-07-06] MEDS: LOSARTAN/HCTZ 50/12.5MG TAB PO SCH (08:08)
[2022-07-06] MEDS: POTASSIUM CHLORIDE CRTAB 20 MEQ TABCR PO SCH (08:08)
--- NOTE | 2022-07-06 08:11 | Orthopedic Progress Note ---
Date of Service July 06, 2022 Assessment & Plan (1) Neurogenic claudication due to lumbar spinal stenosis: Plan: This time continue physical therapy monitor his DAVID output hopefully discharge home in the next few days. Admission and Anticipated Discharge Date Admission Date: July 03, 2022 Subjective Back pain controlled leg symptoms improved Physical Exam Physical Exam: Patient is alert and oriented. He is comfortable. Is good strength testing. Results & Data ([facility]) Vital Signs (Past 12 Hours) Vital Signs Temp Pulse Pulse Resp BP Pulse Ox O2 Del Method 07/06/22 07:53 94 Room Air 07/06/22 07:37 36.6 C 73 16 116/65 94 Nasal Cannula 07/06/22 02:58 36.6 C 89 18 119/73 92 Room Air 07/05/22 22:02 36.6 C 69 16 113/66 92 Nasal Cannula 07/05/22 21:03 36.5 C 89 20 106/68 95 Nasal Cannula O2 Flow Rate 07/06/22 07:53 07/06/22 07:37 2 07/06/22 02:58 07/05/22 22:02 3 07/05/22 21:03 3
--- NOTE | 2022-07-06 08:40 | Electrocardiogram Report ---
Test Reason : Blood Pressure : / mmHG Vent. Rate : 058 BPM Atrial Rate : 058 BPM P-R Int : 228 ms QRS Dur : 132 ms QT Int : 460 ms P-R-T Axes : 016 -59 -37 degrees QTc Int : 451 ms Sinus bradycardia with 1st degree A-V block Possible Left atrial enlargement Left anterior fascicular block Left ventricular hypertrophy with QRS widening T wave abnormality, consider inferolateral ischemia Abnormal ECG When compared with ECG of 03-JUL-2022 23:11, T wave inversion now evident in Inferior leads T wave inversion more evident in Lateral leads Confirmed by Presley Riley ([id number]) on 07/06/2022 8:39:35 AM Referred By: Wade Williamson Confirmed By:Presley Riley
--- NOTE | 2022-07-06 09:11 | Electrocardiogram Report ---
Test Reason : Blood Pressure : / mmHG Vent. Rate : 082 BPM Atrial Rate : 082 BPM P-R Int : 198 ms QRS Dur : 128 ms QT Int : 414 ms P-R-T Axes : 046 -31 150 degrees QTc Int : 483 ms Normal sinus rhythm Possible Left atrial enlargement Left anterior fascicular block Right bundle branch block Left ventricular hypertrophy with QRS widening and repolarization abnormality Abnormal ECG When compared with ECG of 05-JUL-2022 17:17, TN interval has decreased Right bundle branch block is now Present Confirmed by Presley Riley ([id number]) on 07/06/2022 9:10:50 AM Referred By: Wade Williamson Confirmed By:Presley Riley
[2022-07-06] MEDS: ACETAMINOPHEN 500 MG TAB PO PRN (10:51)
[2022-07-06] MEDS: HYDROmorphone INJ 1 MG/ML SYRINGE IV PRN (14:33)
--- NOTE | 2022-07-06 18:34 | Hospitalist Progress Note ---
Date of Service July 06, 2022 Assessment & Plan (1) Neurogenic claudication due to lumbar spinal stenosis: (2) Compression fracture: Plan Patient is a 77-year-old male with past medical history of COPD, CHF, CAD, GERD, hypertension, hyperlipidemia, history of ascending aortic aneurysm status post repair, BPH presented after a fall about a month ago. He was found to have A elqu-ew-oibjlqwe appearing fractures of L1, L3, L4. Corresponding marrow edema on MRI lumbar spine. Patient is scheduled for Lumbar decompression and fusion L2-L3 L3-L4 L4-L5 with possible kyphoplasty on 07/05. Mechanical Fall Lumbar spine fracture at L1, L3 and L4 S/P decompression and fusion performed by dr. Williamson on 07/05 Presents after a fall in the bathroom about a month ago. MRI finding showed acute to subacute appearing fractures of L1, L3, and L4 as detailed above with corresponding marrow edema. superiorly extruded and possibly sequestered disc fragment eccentric to the left at L4-L5. Continue pain controlled Continue incentive spirometry Hgb dropped 11.8 Continue PT/OT eval Fall precaution Chronic conditions: History of chronic obstructive pulmonary disease. Continue his home inhalers, currently stable. History of congestive heart failure. The patient has ejection fraction of 40%- 45% in 2018, but recovered to 50%-55% on echocardiogram in 08/2021. On Lasix, Coreg, and losartan/hydrochlorothiazide, which will be continued. History of coronary artery disease, on statin and beta alisha. Gastroesophageal reflux disease, on omeprazole. Hypertension, high blood pressure. The patient is on amlodipine, Coreg, losartan/hydrochlorothiazide, diuretics. We will monitor his blood pressure. Hyperlipidemia, on statin. History of ascending aortic aneurysm, status post repair. History of benign prostatic hyperplasia, we will monitor for any urinary retention. Deep venous thrombosis prophylaxis. SCDs; start pharmacological prophylaxis after procedure Admission and Anticipated Discharge Date Admission Date: July 03, 2022 Subjective Pt was seen and examined Lying in bed with no acute distress Pt said pain is controlled Denies any chest pain, palpitation, dizziness and SOB Review of Systems Review of Systems: All systems reviewed & are unremarkable except as noted in Subjective Physical Exam Physical Exam: General- No acute distress Head- atraumatic Eyes- PERRL, EOMI, ENT- oropharynx clear Neck- supple, no JVD Lungs- clear to auscultation Heart- regular rhythm; no murmur Abdomen- normal bowel sounds, soft, nontender Extremities- no calf tenderness Neuro- alert, oriented x 3; PERRL, EOMI; no facial palsy; no dysarthria Skin- warm & dry Results & Data Results & Data ([facility]) Vital Signs (Past 12 Hours) Vital Signs Temp Pulse Resp BP Pulse Ox O2 Del Method O2 Flow Rate 07/06/22 14:21 36.7 C 94 H 18 112/62 94 Room Air 07/06/22 07:48 Room Air 07/06/22 10:45 36.9 C 93 H 17 129/77 92 Room Air 07/06/22 07:53 94 Room Air 07/06/22 07:37 36.6 C 73 16 116/65 94 Nasal Cannula 2
[2022-07-06] MEDS: ATORVASTATIN 40 MG TAB PO SCH (20:25)
[2022-07-06] MEDS: DOCUSATE SODIUM/SENNA 50/8.6MG TAB PO SCH (20:25)
[2022-07-07] MEDS: oxyCODONE HCL IR 5 MG TAB (IMMEDIATE RELEASE) PO PRN ×3 (02:25→13:22)
[2022-07-07] MEDS: POLYETHYLENE (MIRALAX) 17 GM PACK PO SCH ×4 (02:26→17:40)
[2022-07-07 07:21] LABS: Basophils # (auto) 0.06 K/uL (0-0.2); Basophils % (auto) 0.8 %; Eosinophils # (auto) 0.07 K/uL (0-0.50); Eosinophils % (auto) 0.9 %; Hematocrit (blood only) 32.8 % (40.1-51.0); Hemoglobin 10.9 g/dl (14.0-18.0); Immature Granulocytes # (auto) 0.03 K/uL (0.00-0.02); Immature Granulocytes % (auto) 0.4 %; Lymphocytes # (auto) 1.19 K/uL (1.2-3.4); Lymphocytes % (auto) 16.1 %; Mean Corpuscular Hemoglobin 29.8 pg (25.0-34.0); Mean Corpuscular Hgb Conc 33.2 g/dL (32.0-36.0); Mean Corpuscular Volume 89.6 fL (80.0-100.0); Mean Platelet Volume 10.7 fL (9.4-12.4); Monocytes # (auto) 1.39 K/uL (0.24-0.82); Monocytes % (auto) 18.8 %; Neutrophils # (auto) 4.66 K/uL (1.4-6.5); Platelet Count 182 K/uL (130-400); RDW Coefficient of Variation 13.7 % (11.5-14.5); Red Blood Count 3.66 M/uL (4.63-6.08)
[2022-07-07 07:41] LABS: BUN Creatinine Ratio 19.4 (10-20); Calcium 8.5 mg/dl (8.5-10.1); Creatinine Clr Calc Pharmacy 115.3 ml/min; Est GFR (African American) 107.4 ml/min; Est GFR (Non-African American) 92.7 ml/min; Potassium 3.8 mmol/L (3.5-5.1)
[2022-07-07] MEDS: carvediloL 6.25 MG TAB PO SCH ×2 (08:07→19:33)
[2022-07-07] MEDS: ASPIRIN 81 MG ECTAB PO SCH (08:07)
[2022-07-07] MEDS: amLODIPine BESYLATE 5 MG TAB PO SCH (08:07)
[2022-07-07] MEDS: PANTOprazole 40 MG TAB PO SCH (08:08)
[2022-07-07] MEDS: MAGNESIUM OXIDE 400 MG TAB PO SCH (08:08)
[2022-07-07] MEDS: FUROSEMIDE 40 MG TAB PO SCH (08:08)
[2022-07-07] MEDS: LOSARTAN/HCTZ 50/12.5MG TAB PO SCH (08:08)
[2022-07-07] MEDS: UMECLIDINIUM/VILANTEROL 62.5/25MCG 7 PUFFS/INHALER INH SCH (08:09)
[2022-07-07] MEDS: POTASSIUM CHLORIDE CRTAB 20 MEQ TABCR PO SCH (08:09)
--- NOTE | 2022-07-07 09:34 | Orthopedic Progress Note ---
Date of Service July 07, 2022 Assessment & Plan (1) Neurogenic claudication due to lumbar spinal stenosis: Plan: This time we will maintain the DAVID drain continue physical therapy. I did obtain a UA today. I started Flomax to see if this will assist in his urinary stream. Hopefully discharge home this weekend. Admission and Anticipated Discharge Date Admission Date: July 03, 2022 Subjective Patient is back pain is controlled leg symptoms improved Physical Exam Physical Exam: Patient is constricted testing peers comfortable. Results & Data ([facility]) Vital Signs (Past 12 Hours) Vital Signs Temp Pulse Resp BP Pulse Ox O2 Del Method 07/07/22 07:44 36.6 C 74 18 109/63 91 Room Air
[2022-07-07 12:23] LABS: Appearance Urine Clear (Clear); Bilirubin Urine Negative (Negative); Blood Urine Negative (Negative); Color Urine Yellow; Glucose Urine UA Negative (Negative); Ketones Urine Negative (Negative); Leukocyte Esterase Urine Negative (Negative); Nitrite Urine Negative (Negative); Protein Urine Negative (Negative); Specific Gravity Urine 1.007 (1.000-1.030); Urobilinogen Urine Negative (Negative)
[2022-07-07] MEDS: TAMSULOSIN HCL 0.4 MG CAP PO SCH (19:32)
[2022-07-07] MEDS: DOCUSATE SODIUM/SENNA 50/8.6MG TAB PO SCH (19:33)
[2022-07-07] MEDS: ATORVASTATIN 40 MG TAB PO SCH (19:34)
--- NOTE | 2022-07-07 22:42 | Hospitalist Progress Note ---
Date of Service July 07, 2022 Assessment & Plan (1) Neurogenic claudication due to lumbar spinal stenosis: (2) Compression fracture: Plan Patient is a 77-year-old male with past medical history of COPD, CHF, CAD, GERD, hypertension, hyperlipidemia, history of ascending aortic aneurysm status post repair, BPH presented after a fall about a month ago. He was found to have A hikb-wa-rtzhwdxj appearing fractures of L1, L3, L4. Corresponding marrow edema on MRI lumbar spine. Patient is scheduled for Lumbar decompression and fusion L2-L3 L3-L4 L4-L5 with possible kyphoplasty on 07/05. Mechanical Fall Lumbar spine fracture at L1, L3 and L4 S/P decompression and fusion performed by dr. Williamson on 07/05 Presents after a fall in the bathroom about a month ago. MRI finding showed acute to subacute appearing fractures of L1, L3, and L4 as detailed above with corresponding marrow edema. superiorly extruded and possibly sequestered disc fragment eccentric to the left at L4-L5. Continue pain controlled Continue incentive spirometry Hgb dropped 11.8 Continue PT/OT eval Fall precaution Hypertension BP in the low side. Will hold BP med Will give gentle IVF x 1 bag History of congestive heart failure. Most recent echo showed EF 50%-55% on echocardiogram in 08/2021. Lasix, Losartan, HCTZ on hold Continue Coreg Chronic conditions: History of chronic obstructive pulmonary disease. Continue his home inhalers, currently stable. History of coronary artery disease, on statin and beta alisha. Gastroesophageal reflux disease, on omeprazole. Hyperlipidemia, on statin. History of ascending aortic aneurysm, status post repair. History of benign prostatic hyperplasia, we will monitor for any urinary retention. Deep venous thrombosis prophylaxis. SCDs; start pharmacological prophylaxis after procedure Admission and Anticipated Discharge Date Admission Date: July 03, 2022 Subjective Pt was seen and examined for postop follow up Lying in bed with no acute distress Pt said pain is controlled He said that he feels dizzy while getting ready to walk Denies any chest pain, palpitation, SOB Review of Systems Review of Systems: All systems reviewed & are unremarkable except as noted in Subjective Physical Exam Physical Exam: General- No acute distress Head- atraumatic Eyes- PERRL, EOMI, ENT- oropharynx clear Neck- supple, no JVD Lungs- clear to auscultation Heart- regular rhythm; no murmur Abdomen- normal bowel sounds, soft, nontender Extremities- no calf tenderness Neuro- alert, oriented x 3; PERRL, EOMI; no facial palsy; no dysarthria Skin- warm & dry Results & Data Results & Data ([facility]) Vital Signs (Past 12 Hours) Vital Signs Temp Pulse Resp BP Pulse Ox O2 Del Method 07/07/22 22:14 36.9 C 92 H 18 97/58 L 91 Room Air 07/07/22 15:19 36.7 C 88 16 110/57 L 91 Room Air
[2022-07-08] MEDS ORDERED: SODIUM CHLORIDE 0.9% 1000ML 1,000 ML IV SCH (01:15)
[2022-07-08] MEDS: POLYETHYLENE (MIRALAX) 17 GM PACK PO SCH ×3 (04:27→12:54)
[2022-07-08] MEDS: oxyCODONE HCL IR 5 MG TAB (IMMEDIATE RELEASE) PO PRN ×4 (04:44→19:32)
[2022-07-08 07:09] LABS: Hematocrit (blood only) 29.7 % (40.1-51.0); Hemoglobin 10.1 g/dl (14.0-18.0); Mean Corpuscular Hemoglobin 30.1 pg (25.0-34.0); Mean Corpuscular Volume 88.4 fL (80.0-100.0); Mean Platelet Volume 10.6 fL (9.4-12.4); Platelet Count 175 K/uL (130-400); RDW Coefficient of Variation 13.6 % (11.5-14.5); RDW Standard Deviation 44.6 fL (36.4-46.3); Red Blood Count 3.36 M/uL (4.63-6.08); White Blood Count 6.36 K/ul (4.8-10.8)
[2022-07-08] MEDS: POTASSIUM CHLORIDE CRTAB 20 MEQ TABCR PO SCH (07:57)
[2022-07-08] MEDS: MAGNESIUM OXIDE 400 MG TAB PO SCH (07:57)
[2022-07-08] MEDS: ASPIRIN 81 MG ECTAB PO SCH (07:57)
[2022-07-08] MEDS: PANTOprazole 40 MG TAB PO SCH (07:57)
[2022-07-08] MEDS: carvediloL 6.25 MG TAB PO SCH ×2 (07:58→19:33)
[2022-07-08] MEDS: UMECLIDINIUM/VILANTEROL 62.5/25MCG 7 PUFFS/INHALER INH SCH (07:58)
--- NOTE | 2022-07-08 09:53 | Orthopedic Progress Note ---
Date of Service July 08, 2022 Assessment & Plan (1) Neurogenic claudication due to lumbar spinal stenosis: Plan: This time we will attempt physical therapy as tolerated. Have medicine weigh in regarding his persistent lightheadedness. Hopefully be able to be discharged Sunday or Sunday. Admission and Anticipated Discharge Date Admission Date: July 03, 2022 Subjective Patient's back pain is controlled Steadily improving. Fortunately struggling with a lightheadedness when he gets up. This is his most limiting factor. Physical Exam Physical Exam: On exam he sitting in the bedside. Strength testing. Peers comfortable. Blood pressure stable at this time. Results & Data ([facility]) Vital Signs (Past 12 Hours) Vital Signs Temp Pulse Resp BP Pulse Ox O2 Del Method 07/08/22 07:44 36.4 C L 77 18 119/69 91 Room Air 07/07/22 22:14 36.9 C 92 H 18 97/58 L 91 Room Air
--- NOTE | 2022-07-08 17:17 | Hospitalist Progress Note ---
Date of Service July 08, 2022 Assessment & Plan (1) Neurogenic claudication due to lumbar spinal stenosis: (2) Compression fracture: Plan Patient is a 77-year-old male with past medical history of COPD, CHF, CAD, GERD, hypertension, hyperlipidemia, history of ascending aortic aneurysm status post repair, BPH presented after a fall about a month ago. He was found to have A lehu-bs-dpspogcc appearing fractures of L1, L3, L4. Corresponding marrow edema on MRI lumbar spine. Patient is scheduled for Lumbar decompression and fusion L2-L3 L3-L4 L4-L5 with possible kyphoplasty on 07/05. Mechanical Fall Lumbar spine fracture at L1, L3 and L4 S/P decompression and fusion performed by dr. Williamson on 07/05 Presents after a fall in the bathroom about a month ago. MRI finding showed acute to subacute appearing fractures of L1, L3, and L4 as detailed above with corresponding marrow edema. superiorly extruded and possibly sequestered disc fragment eccentric to the left at L4-L5. Continue pain controlled Continue incentive spirometry Hgb dropped 11.8 Continue PT/OT eval Fall precaution Hypertension BP stable IVF discontinued History of congestive heart failure. Most recent echo showed EF 50%-55% on echocardiogram in 08/2021. Lasix, Losartan, HCTZ on hold Continue Coreg Chronic conditions: History of chronic obstructive pulmonary disease. Continue his home inhalers, currently stable. History of coronary artery disease, on statin and beta alisha. Gastroesophageal reflux disease, on omeprazole. Hyperlipidemia, on statin. History of ascending aortic aneurysm, status post repair. History of benign prostatic hyperplasia, we will monitor for any urinary retention. Deep venous thrombosis prophylaxis. SCDs; start pharmacological prophylaxis after procedure Admission and Anticipated Discharge Date Admission Date: July 03, 2022 Subjective Pt was seen and examined for postop follow up Lying in bed with no acute distress Pt said pain is controlled Pt said that he walked around the hallway today Denies any chest pain, palpitation, SOB Review of Systems Review of Systems: All systems reviewed & are unremarkable except as noted in Subjective Physical Exam Physical Exam: General- No acute distress Head- atraumatic Eyes- PERRL, EOMI, ENT- oropharynx clear Neck- supple, no JVD Lungs- clear to auscultation Heart- regular rhythm; no murmur Abdomen- normal bowel sounds, soft, nontender Extremities- no calf tenderness Neuro- alert, oriented x 3; PERRL, EOMI; no facial palsy; no dysarthria Skin- warm & dry Results & Data Results & Data ([facility]) Vital Signs (Past 12 Hours) Vital Signs Temp Pulse Resp BP Pulse Ox O2 Del Method 07/08/22 15:17 36.6 C 71 18 122/68 91 Room Air 07/08/22 07:44 36.4 C L 77 18 119/69 91 Room Air
[2022-07-08] MEDS: DOCUSATE SODIUM/SENNA 50/8.6MG TAB PO SCH (19:33)
[2022-07-08] MEDS: TAMSULOSIN HCL 0.4 MG CAP PO SCH (19:34)
[2022-07-08] MEDS: ATORVASTATIN 40 MG TAB PO SCH (19:34)
[2022-07-09] MEDS: oxyCODONE HCL IR 5 MG TAB (IMMEDIATE RELEASE) PO PRN ×5 (01:02→23:47)
--- NOTE | 2022-07-09 07:40 | Orthopedic Progress Note ---
Date of Service July 09, 2022 Assessment & Plan (1) Neurogenic claudication due to lumbar spinal stenosis: Plan: Patient is doing well postop day #4. He still is having some issues with dizziness when he stands and walks. I would like to keep him today to have a nother course of physical therapy. We will continue to monitor his progress and hopefully get him home tomorrow. Admission and Anticipated Discharge Date Admission Date: July 03, 2022 Subjective Patient seen bedside in room 307. He is doing well this morning. His pain is well controlled. He still has issues with dizziness when he first stands up. He did walk twice yesterday and got dizzy both times. His numbness is improving in his lower extremities. The strength is slowly returning. He still is requiring help for mobility. He denies any other numbness, tingling, or paresthesias. Physical Exam Physical Exam: On exam he is alert and oriented. His abdomen soft nontender his calves are supple nontender. His DAVID drain is no longer present. His strength and sensation are both intact his gait was not observed. His dressing is clean dry and intact. Results & Data ([facility]) Vital Signs (Past 12 Hours) Vital Signs Temp Pulse Resp BP Pulse Ox O2 Del Method 07/09/22 00:39 36.7 C 87 16 111/69 91 Room Air
[2022-07-09] MEDS: ASPIRIN 81 MG ECTAB PO SCH (07:58)
[2022-07-09] MEDS: POTASSIUM CHLORIDE CRTAB 20 MEQ TABCR PO SCH (07:59)
[2022-07-09] MEDS: PANTOprazole 40 MG TAB PO SCH (07:59)
[2022-07-09] MEDS: carvediloL 6.25 MG TAB PO SCH ×2 (07:59→19:19)
[2022-07-09] MEDS: MAGNESIUM OXIDE 400 MG TAB PO SCH (07:59)
[2022-07-09] MEDS: UMECLIDINIUM/VILANTEROL 62.5/25MCG 7 PUFFS/INHALER INH SCH (08:00)
[2022-07-09] MEDS: TAMSULOSIN HCL 0.4 MG CAP PO SCH (19:20)
[2022-07-09] MEDS: DOCUSATE SODIUM/SENNA 50/8.6MG TAB PO SCH (19:20)
[2022-07-09] MEDS: ATORVASTATIN 40 MG TAB PO SCH (19:20)
[2022-07-09] MEDS: ACETAMINOPHEN 500 MG TAB PO PRN (19:25)
--- NOTE | 2022-07-09 23:50 | Hospitalist Progress Note ---
Date of Service July 09, 2022 Assessment & Plan (1) Neurogenic claudication due to lumbar spinal stenosis: (2) Compression fracture: Plan Patient is a 77-year-old male with past medical history of COPD, CHF, CAD, GERD, hypertension, hyperlipidemia, history of ascending aortic aneurysm status post repair, BPH presented after a fall about a month ago. He was found to have A utav-wv-eysmemkz appearing fractures of L1, L3, L4. Corresponding marrow edema on MRI lumbar spine. Patient is scheduled for Lumbar decompression and fusion L2-L3 L3-L4 L4-L5 with possible kyphoplasty on 07/05. Mechanical Fall Lumbar spine fracture at L1, L3 and L4 S/P decompression and fusion performed by dr. Williamson on 07/05 Presents after a fall in the bathroom about a month ago. MRI finding showed acute to subacute appearing fractures of L1, L3, and L4 as detailed above with corresponding marrow edema. superiorly extruded and possibly sequestered disc fragment eccentric to the left at L4-L5. Continue pain controlled Continue incentive spirometry DAVID drain removed Hgb dropped 11.8 Continue PT/OT eval Fall precaution Hypertension BP stable IVF discontinued History of congestive heart failure. Most recent echo showed EF 50%-55% on echocardiogram in 08/2021. Lasix, Losartan, HCTZ on hold Continue Coreg Chronic conditions: History of chronic obstructive pulmonary disease. Continue his home inhalers, currently stable. History of coronary artery disease, on statin and beta alisha. Gastroesophageal reflux disease, on omeprazole. Hyperlipidemia, on statin. History of ascending aortic aneurysm, status post repair. History of benign prostatic hyperplasia, we will monitor for any urinary retention. Deep venous thrombosis prophylaxis. SCDs; start pharmacological prophylaxis after procedure Admission and Anticipated Discharge Date Admission Date: July 03, 2022 Subjective Pt was seen and examined for postop follow up Sitting in chair with no acute distress Pt said pain is controlled He said that dizziness start to improve Denies any chest pain, palpitation, SOB Review of Systems Review of Systems: All systems reviewed & are unremarkable except as noted in Subjective Physical Exam Physical Exam: General- No acute distress Head- atraumatic Eyes- PERRL, EOMI, ENT- oropharynx clear Neck- supple, no JVD Lungs- clear to auscultation Heart- regular rhythm; no murmur Abdomen- normal bowel sounds, soft, nontender Extremities- no calf tenderness Neuro- alert, oriented x 3; PERRL, EOMI; no facial palsy; no dysarthria Skin- warm & dry Results & Data Results & Data ([facility]) Vital Signs (Past 12 Hours) Vital Signs Temp Pulse Resp BP BP Pulse Ox O2 Del Method 07/09/22 21:00 36.9 C 78 18 104/63 94 Room Air 07/09/22 14:39 36.8 C 86 18 110/67 94 Room Air
[2022-07-10] MEDS: oxyCODONE HCL IR 5 MG TAB (IMMEDIATE RELEASE) PO PRN (07:26)
[2022-07-10] MEDS: UMECLIDINIUM/VILANTEROL 62.5/25MCG 7 PUFFS/INHALER INH SCH (08:47)
[2022-07-10] MEDS: POTASSIUM CHLORIDE CRTAB 20 MEQ TABCR PO SCH (08:47)
[2022-07-10] MEDS: ASPIRIN 81 MG ECTAB PO SCH (08:47)
[2022-07-10] MEDS: PANTOprazole 40 MG TAB PO SCH (08:47)
[2022-07-10] MEDS: MAGNESIUM OXIDE 400 MG TAB PO SCH (08:47)
[2022-07-10] MEDS: carvediloL 6.25 MG TAB PO SCH (08:47)
--- NOTE | 2022-07-10 12:47 | Discharge Summary ---
Date of Service July 10, 2022 Admission HPI Per Admitting Provider CHIEF COMPLAINT: Lumbar spine fracture and ambulatory dysfunction. HISTORY OF PRESENT ILLNESS: This is a 77-year-old male with past medical history significant for thoracic aortic aneurysm repair in 2016 [place] [facility] [place] prior cath demonstrating diffuse minor irregularities without obstructive disease. In 2018, he was admitted to [facility] with chest pain, new left bundle-branch block. An updated 2D echo demonstrated mildly reduced LV function with EF of 45%-50% with inferior wall abnormality. 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 Medical management recommended. Ascending aorta by echo criteria was measured to be at 4.4 cm at that time. Follows with vascular surgery at [facility]. History of past tobacco abuse with underlying COPD, hyperlipidemia, hypertension, GERD, BPH, has chronic back pain. The patient says for the last 2 years, he on and off uses cane for back pain , but 1 month ago, he fell on the bathtub on his back and since then he is progressively getting difficulty ambulating, using a walker, that is the reason he was advised to come to the ER. A lumbar spine MRI shows acute to subacute appearing fractures of L1, L3 and L4, corresponding marrow edema, disk fragment to the left of L4-L5. The patient has ambulatory dysfunction and also has numbness in the lateral aspect of the lower leg and feet. No incontinence. He can feel his legs. Currently, resting comfortably, hemodynamically stable. He says not much of back pain, it is more of his numbness and ambulatory dysfunction. Denies any chest pain, no shortness of breath. Occasional cough. No fever, no chills. Appetite is okay. No difficulty swallowing. No headache. He has some chronic neck pain. No blurred visions, no earache, no runny nose, no sore throat, no nausea, no abdominal pain. Normal bowel movements. Since his fall and having this back pain, he is micturating frequently, but denies any incontinence. Admission Exam Per Admitting Provider GENERAL: The patient is of moderate build, not in acute distress. VITAL SIGNS: Temperature 36.3, pulse 86, respiratory rate 19, blood pressure 122/69, oxygen 90% on room air. HEENT: Pupils equal, round and reactive to light. Oral mucosa moist. NECK: No JVD, no neck masses. CARDIOVASCULAR: S1 and S2 heard. Regular rate and rhythm. No murmur, no gallop. RESPIRATORY SYSTEM: Normal AP diameter. No accessory muscle use. No wheezing, no crackles. ABDOMEN: Soft, bowel sounds present, nontender, no distention. CENTRAL NERVOUS SYSTEM: Alert and oriented. No facial droop. Speech is clear. Insight is good. Obeys simple commands, moving his extremities. EXTREMITIES: No edema, no erythema. Sensations are intact in lower extremities, can move his lower extremities. Principal Diagnosis Neurogenic claudication due to lumbar spinal stenosis: Compression fracture: Mechanical Fall Lumbar spine fracture at L1, L3 and L4 Hypertension History of congestive heart failure. History of chronic obstructive pulmonary disease. History of coronary artery disease Hyperlipidemia History of ascending aortic aneurysm History of benign prostatic hyperplasia, Discharge Exam General- No acute distress Head- atraumatic Eyes- PERRL, EOMI, ENT- oropharynx clear Neck- supple, no JVD Lungs- clear to auscultation Heart- regular rhythm; no murmur Abdomen- normal bowel sounds, soft, nontender Extremities- no calf tenderness Neuro- alert, oriented x 3; PERRL, EOMI; no facial palsy; no dysarthria Skin- warm & dry Discharge Data Allergies Allergy/AdvReac Type Severity Reaction Status Date / Time No Known Allergies Allergy Verified 07/03/22 18:10 Consultations 07/03/22 19:49 ED Decision to Admit Stat 07/04/22 08:00 Consult Orthopedic Surgery Routine Procedures Performed Operation Date: 07/05/22 13:00 Actual Procedures p #1 lumbar decompression with bilateral medial facetectomies and foraminotomies L1-L2, L2-3, L3-L4 and L4-L5. #2 posterior spinal fusion L2-L5. #3 placement posterior segmental instrumentation L2-L5. #4 interbody fusion L3-L4 L4-L5. #5 placement of Spira 11 by 26 mm cage at L3-L4 and 12 x 26 mm cage at L4-L5. #6 placement of locally harvested morselized autograft in the posterior gutters. #7 patient of I factor in the interbody space and infuse collagen sponge, master graft in the posterior lateral gutters. - Wade Williamson DO Ordered Studies 07/03/22 16:23 MR lumbar spine wo con Stat 07/05/22 13:00 FL lumbar spine 2-3V Routine Laboratory Results WBC 6.36 K/ul (4.8-10.8) 07/08/22 06:13 RBC 3.36 M/uL (4.63-6.08) L 07/08/22 06:13 Hgb 10.1 g/dl (14.0-18.0) L 07/08/22 06:13 Hct 29.7 % (40.1-51.0) L 07/08/22 06:13 MCV 88.4 fL (80.0-100.0) 07/08/22 06:13 MCH 30.1 pg (25.0-34.0) 07/08/22 06:13 MCHC 34.0 g/dL (32.0-36.0) 07/08/22 06:13 RDW Std Deviation 44.6 fL (36.4-46.3) 07/08/22 06:13 RDW Coeff of Gabe 13.6 % (11.5-14.5) 07/08/22 06:13 Plt Count 175 K/uL (130-400) 07/08/22 06:13 MPV 10.6 fL (9.4-12.4) 07/08/22 06:13 Immature Gran % (Auto) 0.4 % 07/07/22 06:16 Neut % (Auto) 63.0 % 07/07/22 06:16 Lymph % (Auto) 16.1 % 07/07/22 06:16 [place] % (Auto) 18.8 % 07/07/22 06:16 Eos % (Auto) 0.9 % 07/07/22 06:16 Baso % (Auto) 0.8 % 07/07/22 06:16 Neut # (Auto) 4.66 K/uL (1.4-6.5) 07/07/22 06:16 Lymph # (Auto) 1.19 K/uL (1.2-3.4) L 07/07/22 06:16 [place] # (Auto) 1.39 K/uL (0.24-0.82) H 07/07/22 06:16 Eos # (Auto) 0.07 K/uL (0-0.50) 07/07/22 06:16 Baso # (Auto) 0.06 K/uL (0-0.2) 07/07/22 06:16 Immature Gran # (Auto) 0.03 K/uL (0.00-0.02) H 07/07/22 06:16 Sodium 132 mmol/L (136-145) L 07/07/22 06:16 Potassium 3.8 mmol/L (3.5-5.1) 07/07/22 06:16 Chloride 97 mmol/L (98-107) L 07/07/22 06:16 Carbon Dioxide 29 mmol/L (21-32) 07/07/22 06:16 Anion Gap 6 (3-11) 07/07/22 06:16 BUN 13 mg/dl (6-23) 07/07/22 06:16 Creatinine 0.67 mg/dl (0.6-1.4) 07/07/22 06:16 Est Cr Clr Drug Dosing 115.3 ml/min 07/07/22 06:16 Est GFR ( Amer) 107.4 ml/min 07/07/22 06:16 Est GFR (Non-Af Amer) 92.7 ml/min 07/07/22 06:16 BUN/Creatinine Ratio 19.4 (10-20) 07/07/22 06:16 Glucose 115 mg/dl (70-99(Fasting)) H 07/07/22 06:16 Calcium 8.5 mg/dl (8.5-10.1) 07/07/22 06:16 Magnesium 1.9 mg/dl (1.7-2.4) 07/04/22 05:31 Total Bilirubin 1.5 mg/dl (0.2-1.0) H 07/03/22 14:47 AST 15 U/L (13-39) 07/03/22 14:47 ALT 17 U/L (7-52) 07/03/22 14:47 Alkaline Phosphatase 113 U/L (34-104) H 07/03/22 14:47 Troponin I High Sens 5.0 pg/ml (0-20) 07/05/22 23:19 Total Protein 7.3 gm/dl (6.0-8.3) 07/03/22 14:47 Albumin 4.5 gm/dl (3.4-5.0) 07/03/22 14:47 Globulin 2.8 gm/dl (2.5-4.0) 07/03/22 14:47 Albumin/Globulin Ratio 1.6 (0.9-2) 07/03/22 14:47 Urine Color Yellow 07/07/22 Unknown Urine Appearance Clear (Clear) 07/07/22 Unknown Urine pH 5.0 (4.5-7.5) 07/07/22 Unknown Ur Specific [place] 1.007 (1.000-1.030) 07/07/22 Unknown Urine Protein Negative (Negative) 07/07/22 Unknown Urine Glucose (UA) Negative (Negative) 07/07/22 Unknown Urine Ketones Negative (Negative) 07/07/22 Unknown Urine Blood Negative (Negative) 07/07/22 Unknown Urine Nitrite Negative (Negative) 07/07/22 Unknown Urine Bilirubin Negative (Negative) 07/07/22 Unknown Urine Urobilinogen Negative (Negative) 07/07/22 Unknown Ur Leukocyte Esterase Negative (Negative) 07/07/22 Unknown SARS-CoV-2, RNA, NAAT NEGATIVE (NEGATIVE) 07/03/22 20:05 Blood Type AB Positive 07/04/22 05:31 Antibody Screen NEGATIVE 07/04/22 05:31 Crossmatch See Detail 07/04/22 05:31 Impressions Lumbar Spine MRI 07/03/22 16:23 MRI OF THE LUMBAR SPINE WITHOUT IV CONTRAST CLINICAL HISTORY: Low back pain. Leg weakness. COMPARISON STUDY: No priors. TECHNIQUE: MRI of the lumbar spine is performed utilizing various T1 and T2- weighted sequences in the axial and sagittal planes. IV contrast was not administered for this examination. The examination is significantly compromised by motion artifact. FINDINGS: Lumbar spine: There is an acute to subacute superior endplate compression fracture of L4 with mild loss of height and associated marrow edema. There is also an inferior endplate fracture of L3. There is no loss of height of the L3 vertebral body. There is also a mild subacute appearing superior endplate com pression fracture of L1. There is only mild loss of height and mild marrow edema. No retropulsed fragments are identified. Vertebral body height is otherwise maintained throughout the lumbar spine. There is minimal retrolisthesis at L2-L3 and L3-L4. There is straightening of the lumbar lordosis. Large anterior and lateral marginal osteophytes are seen throughout. The transverse and spinous processes are grossly intact. There is no evidence of spondylolysis. Intervertebral discs: Degenerative disc desiccation and loss of height is seen throughout the lumbar spine. Loss of height is severe at L2-L3 and moderate to severe at L1-L2, L3-L4, and L4-L5. Spinal cord: Visualized spinal cord is normal in morphology and signal intensity. The conus medullaris terminates at the level of L1. The nerve roots of the cauda equina are normal in morphology. T12-L1: Unremarkable. L1-L2: There is broad-based posterior disc bulge and annular fissure. This impinges on the transiting nerve roots, right greater than left. There is only mild acquired compromise of the central canal at this level with a minimum AP diameter of 7 mm. There is bilateral subarticular stenosis. There is mild bilateral neural foraminal narrowing. L2-L3: There is broad-based posterior disc bulge. This impinges on the transiting nerve roots. In conjunction with hypertrophy of the ligamentum flavum, there is moderate to severe central canal stenosis with minimum AP diameter of 5 mm. Lateral disc bulge contributes to severe bilateral subarticular stenosis. In conjunction with facet arthropathy, there is moderate to severe bilateral neural foraminal narrowing. L3-L4: There is broad-based posterior disc bulge. This impinges on the transiting nerve roots. In conjunction with hypertrophy of the ligamentum flavum, there is severe central canal stenosis at this level with a minimum AP diameter of 3 mm. There are large lateral disc bulges seen bilaterally. These impinge on the exiting bilateral L3 nerve roots. In conjunction with facet arthropathy, there is moderate to severe bilateral neural foraminal stenosis at this level. L4-L5: There is broad-based posterior disc bulge and annular fissure. This impinges on the transiting nerve roots. In conjunction with hypertrophy of ligamentum flavum, there is severe central canal stenosis at this level with a minimum AP diameter of 3 mm. A small superiorly extruded and possibly sequestered disc fragment is seen on axial image #26. The fragment is eccentric to the left and measures 10 mm. Lateral disc bulge contributes to bilateral subarticular stenosis. There is impingement of the exiting left L4 nerve root. In conjunction with facet arthropathy, there is severe bilateral neural foraminal stenosis. L5-S1: There is minimal posterior disc bulge. The central canal is clear. Lateral disc bulge contributes to mild bilateral subarticular stenosis. Facet arthropathy contributes to mild bilateral neural foraminal narrowing. Sacrum: The visualized sacrum is normal in morphology and signal intensity. Soft tissues: There is mild fatty atrophy of the paraspinous musculature. A 2.3 cm cyst is noted in the partially imaged right kidney. The bladder wall appears thickened and trabeculated indicating chronic outlet obstruction. IMPRESSION: 1. There are acute to subacute appearing fractures of L1, L3, and L4 as detailed above with corresponding marrow edema. No retropulsed fragments are identified. 2. Advanced lumbosacral spondylosis as above with multilevel acquired compromise of the central canal. See discussion for detailed level by level analysis. 3. There is a superiorly extruded and possibly sequestered disc fragment eccentric to the left at L4-L5. 4. No destructive bony lesion is clearly seen. Dictated: 07/03/2022 6:02 PM Transcribed: 07/03/2022 6:42 PM [facility] [id number] Electronically signed by: Fili Escalera M.D. 07/03/2022 7:28 PM Chest X-Ray 07/04/22 00:12 XR chest 1V portable CLINICAL HISTORY: pre op TECHNIQUE: Single frontal radiograph of the chest was obtained. Comparison: None available at the time of this dictation. FINDINGS: Median sternotomy wires are unchanged. The cardiomediastinal silhouette is normal. The lungs are clear. No evidence of pleural effusion or pneumothorax. IMPRESSION: No acute chest disease. ACT 112: Negative or not required by law. Electronically signed by: Christiano Alonzo M.D. 07/04/2022 8:33 AM Lumbar Spine X-Ray 07/05/22 13:00 FL lumbar spine 2-3V CLINICAL HISTORY: L2-L5 decompression and fusion COMPARISON STUDY: Lumbar spine MRI 07/03/2022. FLUOROSCOPY TIME: 27 seconds. FINDINGS: 2 fluoroscopic spot images of the lumbar spine demonstrate posterior decompression and fusion from L2 through L5 with pedicle screws and rods. The L3-L4 and L4-5 disc spacers are placed. The hardware appears intact. IMPRESSION: Fluoroscopic assistance provided for L2-L5 posterior decompression and fusion. ACT 112: Negative or not required by law. Electronically signed by: Dell Hickey M.D. 07/05/2022 5:09 PM Hospital Course (1) Neurogenic claudication due to lumbar spinal stenosis: (2) Compression fracture: Plan Patient is a 77-year-old male with past medical history of COPD, CHF, CAD, GERD, hypertension, hyperlipidemia, history of ascending aortic aneurysm status post repair, BPH presented after a fall about a month ago. He was found to have A [id number] appearing fractures of L1, L3, L4. Corresponding marrow edema on MRI lumbar spine. Patient is scheduled for Lumbar decompression and fusion L2-L3 L3-L4 L4-L5 with possible kyphoplasty on 07/05. Mechanical Fall Lumbar spine fracture at L1, L3 and L4 S/P decompression and fusion performed by dr. Williamson on 07/05 Presents after a fall in the bathroom about a month ago. MRI finding showed acute to subacute appearing fractures of L1, L3, and L4 as detailed above with corresponding marrow edema. superiorly extruded and possibly sequestered disc fragment eccentric to the left at L4-L5. Continue pain controlled Continue incentive spirometry DAVID drain removed Hgb dropped 11.8 Continue PT/OT eval Fall precaution Hypertension BP stable IVF discontinued History of congestive heart failure. Most recent echo showed EF 50%-55% on echocardiogram in 08/2021. Lasix, Losartan, HCTZ on hold Continue Coreg Chronic conditions: History of chronic obstructive pulmonary disease. Continue his home inhalers, currently stable. History of coronary artery disease, on statin and beta alisha. Gastroesophageal reflux disease, on omeprazole. Hyperlipidemia, on statin. History of ascending aortic aneurysm, status post repair. History of benign prostatic hyperplasia, we will monitor for any urinary retention. Deep venous thrombosis prophylaxis. SCDs; start pharmacological prophylaxis after procedure Total Time Total Time Spent Total Time Spent (In Minutes): 35 minutes Discharge Plan Discharge Items Patient Disposition: Home - Self-Care Reason For Visit: LEG INJURY Discharge Diagnosis: Lumbar spinal stenosis with neurogenic claudication Activity: As commented below Non-emergency contact: Primary Care Provider Call non-emergency contact if: you have any medication questions Follow-up/Referrals: Aide Moss MD [Primary Care Provider] - Diet: Heart Healthy Addtl Attending Provider Instructions: Follow up with your primary care provider within 1 week Follow up with orthopedic dr. Williamson Continue monitor your blood pressure and bring your blood pressure log at your next appointment with your provider Fall precaution ACTIVITY RECOMMENDATIONS: SELF CARE INSTRUCTIONS AFTER THORACIC/LUMBAR FUSIONS 1. You may walk to your tolerance. It is good exercise for your legs and back. Expect some back and intermittent leg aches and pains. 2. You may perform "counter-top" level activities (make a sandwich, monroe with a project, etc.). 3. No bending or lifting of more than 10 pounds or back twisting of any nature (roll like a log when turning in bed). 4. You may ride in a car for 20-30 minutes at a time. No driving until after your first visit with your doctor. 5. Frequent changes of position and restricting sitting to 30 minutes at a time will help limit the amount of back spasms and stiffness you may experience. 6. You may discontinue the use of ambulatory aids (cane, crutches, etc.) once your strength and confidence allow. 7. You may quantitative software engineer the shower and let water strike your incision when you arrive home at least once daily. Do not take a tub bath, sit in a hot tub or go into a swimming pool until after your first recheck in the office. SPECIAL CARE INSTRUCTIONS: VERY IMPORTANT TO READ AND REVIEW A. Your surgical incision has been closed with a cosmetic suture under the skin that will dissolve in about 6 weeks. In 14 days, you can use a pair of clean scissors and cut the suture that is left outside of the skin at the ends of your incision. 1. The small skin tapes can be removed 7 days after surgery if they have not fallen off by that point. 2. You may keep the wound open to air as much as possible to promote healing after post-op day number 5 unless told otherwise by your doctor. 3. If you think the wound looks like it is becoming infected (redness or worsening drainage) and/or you are experiencing fever, chill or worsening back pain and muscle spasms, contact the office so that we may evaluate you as soon as possible. B. Complications are uncommon, but please contact us if you have any signs or symptoms of: 1. wound infection (fever higher than 102.5 degrees F, redness, separation of wound, drainage, or increasing pain from the incision) 2. blood clots in legs (pain, swelling, redness and warmth in legs) 3. urinary tract infection (fever higher than 102.5 degrees F, burning upon urination or increased frequency of urination) 4. nerve problems (inability to walk on your toes or heels, numbness, loss of bowel or bladder control) 5. any other symptoms that concern you C. Please call the office at if you have any concerns or questions about your operation or recovery. D. No smoking! Smoking drastically decreases the chance of a solid fusion. E. Do not take any anti-inflammatory medications (Indocin, Advil, Motrin, Aspirin, Naprosyn, etc.) as these may inhibit the chance of a solid fusion. Tylenol is okay to take for pain. MANAGING PAIN AFTER SPINAL SURGERY 1. Narcotic medication is intended for short-term use and will be provided for surgical pain. Surgical pain usually lasts for a period of 4-6 weeks. Narcotic medication includes Percocet, Vicodin, Darvocet, Tylenol #3 or Lortab. 2. Longer-term pain is more appropriately treated with non-narcotic medication such as Tylenol ES. 3. Muscle spasm is not appropriately treated with narcotics. Muscle relaxers such as Soma, Flexeril or Skelaxin can be used along with Tylenol ES. 4. Remember that we all live with some "aches and pains". This is not unusual or uncommon after an injury or as we get older. a. Back pain is expected and may include muscle spasms for 4 to 6 weeks after surgery. The pain should gradually improve. If the pain worsens for no apparent reason, please contact the office. b. Intermittent leg pain may also be experienced and should not be concerned about unless it worsens for no apparent reason. If so, please contact the office. 5. We will provide appropriate medication within the normal guidelines of their prescribed use. We will also be very cautious and aware of potential abuse and extended duration of patients' medication needs. a. Pain medications are for your comfort and to assist with sleep and rest so that the tissue can heal. They are not provided in order to return to normal activity and should not be used through the day. To do so or worsening pain at night can result from ongoing tissue damage and development of tolerance to the prescribed medicine. 6. Please allow 2-3 days to process refills. Prescriptions will not be mailed but must be picked up at the office. FOLLOW UP VISIT: Keep your scheduled follow-up appointment. Any questions, please call the office at . Pending Studies at Discharge: No Stand-Alone Forms: PsyQic, Smoking Cessation Medications and DC Order Prescriptions: New oxycodone 5 mg tablet 5 mg PO Q6H PRN (Reason: pain, severe) Qty: 30 0RF tramadol 50 mg tablet 50 mg PO Q6H PRN (Reason: pain, moderate) Qty: 30 0RF tamsulosin 0.4 mg Capsule 0.4 mg PO HS Qty: 30 3RF Continued furosemide 40 mg tablet 40 mg PO DAILY atorvastatin 80 mg tablet 80 mg PO HS carvedilol 6.25 mg tablet 6.25 mg PO BID sildenafil 50 mg tablet 50 mg PO DAILY PRN (Reason: Sexual Activity) potassium chloride 10 mEq tablet extended release 20 meq PO DAILY amlodipine 5 mg tablet 5 mg PO DAILY omeprazole 40 mg capsule,delayed release(DR/EC) 40 mg PO DAILY losartan-hydrochlorothiazide 100-12.5 mg tablet 1 tab PO DAILY Anoro Ellipta 62.5-25 mcg/actuation blister with device 1 inh INHALATION DAILY magnesium oxide 400 mg magnesium Tablet 400 mg PO DAILY aspirin 81 mg Capsule,Delayed Release(Dr/Ec) 81 mg PO DAILY Discharge Orders: Discharge Order (Routine); Ordered 07/10/22 Ordered By: Wade Evans/Other Patient Handouts: Surg Dc Admission Data Admit Date/Time: 07/03/22 22:49 Attending Provider: Wade Williamson Admit Provider: Wade Williamson Primary Care Provider: Aide Moss Other Providers: Robert Camacho ; Marcel Fortune ; Wade Williamson ; Kandy Goddard Other Interventions: Discharge Summary Assessment (RN) Last Done: 07/10/22 10:24
== END 2022-07-10 11:32 | disposition home or self-care (01) | DRG 454 ==
LOC: ED 13:46 → SUATTDRO 22:49 → 3E 22:49